=== PATIENT | male | born 1970 | race Caucasian/White ===

== ENCOUNTER 2016-04-30 19:24 | Inpatient (IN) | payer OTHER ==
[~2016-04-30] VITALS: Ht 165.1 cm; Wt 62.2 kg
--- NOTE | ~2016-04-30 | HC ---
[facility] [place] [address] CONSULTATION Name: MIRIAM TUBBS JR Room #: 462-P [facility] IN M.R.#: [id number] Admission: 04/30/16 Attend Phys: Keith Muñoz Discharge: 05/03/16 Date of : 66 Report #: [id number] THIS REPORT FOR: //name// CC: CHELSIE physician/PCP Keith Muñoz DATE OF SERVICE: 05/02/2016 PERSONAL PHYSICIAN: None. CHIEF COMPLAINT: Right stump wound. HISTORY OF PRESENT ILLNESS: This is a 46-year-old white male who is homeless who was admitted for alcohol intoxication and unresponsive. The patient on admission was noted to have a lvnpx-hhk-resj amputation on the right with an open wound. The patient states that the njvxe-neu-evxu amputation performed several months ago at [facility], but never did any followup. The patient actually still has the surgical amish in place on the xesnt-yiq-lusx amputation. The patient also has lzfgm-nnj-ybxx amputation on the left, which amish are still in place as well. The patient is a very poor historian and states he is unclear of actually how long the amish have been there. I was asked to see the patient for this wounds on his right stump. The patient also complains of a pruritic rash in his groin. PAST MEDICAL HISTORY: Significant for alcohol abuse, peripheral vascular disease, and COPD. PAST SURGICAL HISTORY: Previous left AKA and the right BKA. CURRENT MEDICATIONS: Unknown, the patient is on IV antibiotics at this time. DRUG ALLERGIES: IBUPROFEN. SOCIAL HISTORY: The patient has a history of smoking, drinks alcohol daily in excess, is homeless. FAMILY HISTORY: Unobtainable. REVIEW OF SYSTEMS: CONSTITUTIONAL: The patient denies fevers or chills. NEUROLOGIC: The patient with generalized weakness. EYES: No complaints. ENT: No complaints. CARDIAC: The patient denies chest pain, palpitations, or peripheral edema. RESPIRATORY: The patient denies shortness of breath, cough, or wheezes. GASTROINTESTINAL: The patient denies nausea, vomiting, or abdominal pain. [facility] [address] [place] [address] CONSULTATION Name: MIRIAM TUBBS Room #: 462-P [facility] IN M.R.#: [id number] Admission: 04/30/16 Attend Phys: Keith Muñoz Discharge: 05/03/16 Date of : 66 Report #: [id number] GENITOURINARY: The patient denies urgency or frequency. MUSCULOSKELETAL: No complaints. SKIN: There is a groin rash as well as a wound on the distal aspect of the right BKA stump. PHYSICAL EXAMINATION: VITAL SIGNS: Stable. The patient is afebrile. GENERAL: This is an alert and oriented x2 person and place, but not time, white male who is in no acute distress. HEENT: Normocephalic, atraumatic. Mucous membranes are dry. Pupils are round. Sclerae are white. NECK: Without JVD. LUNGS: Clear. HEART: Regular. ABDOMEN: Soft, nontender. EXTREMITIES: The patient has a mounk-rfk-zdug amputation on the right with an area of slough and necrosis on the stump itself along the incision line, amish are place. Left AKA has a clean, healed incision, amish still in place. Evaluation of the groin reveals a fungal rash. NEUROLOGIC: Cranial nerves 2-12 are grossly intact. Motor and sensory grossly intact. LABORATORY DATA: White count 9.6, hemoglobin 11.0. Albumin is 2.3. IMPRESSION: 1. Ovkuh-lcu-lcxj amputation on the right with a necrotic stump. 2. Left klsis-srs-jicx amputation with a healed incisional line. 3. Alcohol abuse. 4. Severe protein-calorie malnutrition, albumin 2.3. PROCEDURE NOTE PREPROCEDURE DIAGNOSES: 1. Necrotic stump, right below-the- knee amputation. 2. Peripheral vascular disease. POSTPROCEDURE DIAGNOSES: 1. Necrotic stump, right below-the- knee amputation. 2. Peripheral vascular disease. PROCEDURE: After timeout was taken, verbal consent was obtained. The patient had excisional debridement down to and including subcutaneous tissue with removal of viable and nonviable tissue. A 100% of the wound was debrided for a total of less than 20 square cm totally debrided subcutaneous debridement. Curette was used for the debridement. No anesthesia was used for the debridement. The patient did receive IV morphine during the procedure. [address] [address] CONSULTATION Name: MIRIAM TUBBS Room #: 462-P [facility] IN M.R.#: [id number] Admission: 04/30/16 Attend Phys: Keith Muñoz Discharge: 05/03/16 Date of : 66 Report #: [id number] Bleeding was minimal, easily controlled with pressure. Pre-debridement measurements were 6.0 x 2.0 x 0.2 cm. Post-debridement measurements are 6.1 x 2.4 x 0.4 cm. The patient tolerated the procedure well. Dressing was placed over the wound after the procedure. Once again, total amount of subcutaneous debridement was less than 20 square cm. PLAN: We will use Maxorb AG over the stump site, change this every Thursday, Thursday and Thursday. Cover this with gauze. We will continue to follow the patient. <ELECTRONICALLY SIGNED> By: Nazario Thompson MD 05/08/16 1339 [id number] Nazario Thompson MD /nt
--- NOTE | ~2016-04-30 | HC ---
[facility] [place] [address] CONSULTATION Name: MIRIAM TUBBS JR Room #: 462-P [facility] IN M.R.#: [id number] Admission: 04/30/16 Attend Phys: Keith Muñoz Discharge: 05/03/16 Date of : 66 Report #: [id number] THIS REPORT FOR: //name// CC: CHELSIE physician/PCP Keith Muñoz DATE OF SERVICE: 05/01/2016 REASON FOR CONSULTATION: Right below knee amputation, possible infection. HISTORY OF PRESENT ILLNESS: The patient is a 46-year-old gentleman who was found unresponsive by police last evening. He generally comes in intoxicated and leaves AMA often. He recently has had a right below knee amputation that was done in January per his report. In addition, he has had a left above knee amputation that was done in December per his report. He actually has amish in both of his incision lines from his surgeries. He has had redness and swelling as well as some drainage from his right below knee amputation stump and we have been consulted for evaluation of this. PAST MEDICAL HISTORY: Alcohol abuse, severe peripheral vascular disease, possible COPD. PAST SURGICAL HISTORY: Left above knee amputation, right below knee amputation and previous right transmetatarsal amputation secondary to gangrene. ALLERGIES: IBUPROFEN. HOME MEDICATIONS: Unknown. SOCIAL HISTORY: He does smoke. He also drinks alcohol in excess. He is homeless and lives on the [address]. He gets around with a wheelchair. PHYSICAL EXAMINATION: In general, this is a sickly appearing male in no acute distress. He is oriented and cooperative with exam. Examination of the right lower extremity shows him to have a right below knee amputation. He still has amish in his incision, several of which seemed to be overgrown with skin. The mid portion of his incision looks to be dehisced partially, but there is no obvious exposed bone. There is no purulent drainage. There is mild erythema and tenderness to the stump. The inferior flap of this stump shows some ulceration of the skin, but again no exposed bone or muscle. Examination of the left above-knee amputation shows him to have amish in place. He does have 1 small area of ulceration in the mid portion of the incision that appears to be superficial. There is no erythema or drainage. LABORATORY VALUES: Show him to have a white cell count of 5.7, hemoglobin of 9.3. [address] [address] CONSULTATION Name: MIRIAM TUBBS Room #: 462-P [facility] IN M.R.#: [id number] Admission: 04/30/16 Attend Phys: Keith Muñoz Discharge: 05/03/16 Date of : 66 Report #: [id number] ASSESSMENT: Right below knee amputation, partial wound dehiscence with possible deep infection. PLAN: I am going to get an x-ray of his leg to evaluate this. We will get his amish removed from both of his amputation stumps. I have consulted Dr. Nazario Thompson for his input to see if this can be managed with wound care versus the need for revision amputation and possible above knee amputation. We will follow along with you. Thank you for allowing us to take care of the patient. <ELECTRONICALLY SIGNED> By: Markus Stanton MD 05/09/16 1256 [id number] [id number] Markus Stantno MD /nt
--- NOTE | ~2016-04-30 | H ---
[facility] [place] [address] HISTORY AND PHYSICAL Name: MIRIAM TUBBS JR Room #: 462-P ADM IN M.R.#: [id number] Admission: 04/30/16 Attend Phys: Keith Muñoz Discharge: Date of : 66 Report #: [id number] THIS REPORT FOR: //name// CC: FAM physician/PCP Wong Gilbert DATE OF SERVICE: 04/30/2016 ATTENDING PHYSICIAN: Wong Gilbert MD PRIMARY CARE PHYSICIAN: None. CHIEF COMPLAINT: Unresponsiveness. HISTORY OF PRESENT ILLNESS: The patient is a 46-year-old male, who has been hospitalized at multiple facilities including [facility]. He usually comes in intoxicated and then recovers and leaves AMA. He has had significant vascular problems and has had prior left BKA due to frostbite and infection. He has been noncompliant. He is homeless. Since his last hospitalization here at [facility] in August of 2015, he has had right below knee amputation. It looks like when he was here in August, he was having right foot gangrene, but he was refusing any amputation at that time. He had left AMA in August. Apparently, he was found tonight by police on the side of the road and his wheelchair slumped over. He was unresponsive. He smelled of alcohol. EMS was called. His blood sugar was 155. He did not wake up in the ER, but he was responding to painful stimuli. He has presented similarly in the past. He is currently in the ICU. He remains unresponsive. His heart rate has been tachycardia since arrival. PAST MEDICAL HISTORY: Alcohol abuse, severe PVD, possible COPD. PAST SURGICAL HISTORY: Left BKA and at some point, he must have had left AKA and then most recently right BKA. He has also had a prior right transmetatarsal amputation due to gangrene. ALLERGIES: IBUPROFEN, unknown reaction. HOME MEDICATIONS: I really have no idea what medications he has been taking or how compliant he is and he is unable to provide any details. FAMILY HISTORY: Unobtainable due to altered mental status. SOCIAL HISTORY: Previous records show that the patient smokes. He drinks alcohol in excess and he does have substance abuse with prior drug screen. Prior drug screens positive for marijuana. Looking back at his prior alcohol levels dating back to 2012, they have never been less than 293 with alcohol [facility] [address] [place] [place] [address] HISTORY AND PHYSICAL Name: MIRIAM TUBBS Room #: 462-P [facility] IN M.R.#: [id number] Admission: 04/30/16 Attend Phys: eKith Muñoz Discharge: Date of : 66 Report #: [id number] levels up to 529. REVIEW OF SYSTEMS: Unobtainable due to altered mental status. PHYSICAL EXAMINATION: GENERAL: The patient is an obtunded male, currently in the ICU. VITAL SIGNS: Temperature is 35.6, heart rate 135, respirations 20, blood pressure 129/89, oxygen was 85% on room air. HEENT: PERRLA. Sclerae is nonicteric, but slightly reddened, he will not track with his eyes. Oral mucosa is pink and dry. NECK: Supple, no JVD noted. CARDIOVASCULAR: Heart rate is tachycardic, but no murmurs, rubs or gallops. RESPIRATORY: Breath sounds are clear throughout. He does have ____ breath sounds when his mouth is open. ABDOMEN: Nondistended, but soft with positive bowel sounds. VASCULAR: He does have a left AKA. On the right, he has prior BKA. His stump on the right does look ischemic. It is very dusky in color and there are some multiple open ulcers, he still has amish in place. We have no idea when this surgery took place. There is a small open area within the amish. NEUROLOGIC: The patient is obtunded. He will not arouse to stimuli at this time. He will not answer questions or follow commands. LABORATORY DATA AND DIAGNOSTICS: WBC is 9.6, hemoglobin 11.0, platelets 232. Sodium 148, potassium 3.5, BUN 11, creatinine 0.5. Glucose is 125. AST is 38. ALT 29, alkaline phosphatase 142. Alcohol level is 513, CPK level is 410. Magnesium 1.6. CT of the head, no acute process and EKG showed sinus tachycardia. ASSESSMENT AND PLAN: 1. Alcohol intoxication. We will place on alcohol withdrawal protocol with seizure precautions and start banana bag. Use Ativan p.r.n. for any withdrawal symptoms. Please note once he belle up, he usually leaves AMA. 2. Altered mental status. We will check an ABG since he is so obtunded and make sure he does not have any CO2 retention. We will also check a lactate level on the blood gas if he may require BiPAP. It looks like he has required BiPAP in the past when he presented similarly. 3. Right stump infection. His wound does look ischemic. He does have prior history of nonhealing wounds from gangrene and frostbite. It looks like he just left [facility]. He actually had [facility] armbands still on and his incision on the stump looks recent with amish still intact. We will check a CRP level and blood cultures and start vancomycin as it is difficult to tell if there is underlying infection. We will have wound care evaluate and try to get the records from [facility]. 4. Tachycardia. This may be due to dehydration versus infection. We will continue with aggressive IV fluids. We will follow blood cultures. 5. ____ this is being replaced. Follow labs. [facility] [place] [address] HISTORY AND PHYSICAL Name: ARLEYMIRIAM CARLOS Room #: 462-P ADM IN M.R.#: [id number] Admission: 04/30/16 Attend Phys: Keith Muñoz Discharge: Date of : 66 Report #: [id number] 6. Deep vein thrombosis prophylaxis: Start Lovenox. 7. Acute hypercapnic respiratory failure. His ABGs just came back showing a pH of 7.22, pCO2 of 83, pO2 of 100, bicarbonate 33.4 with a normal lactate of 1.37. We will currently place him on BiPAP and repeat ABGs later in the morning. We will continue to follow the patient closely throughout the hospitalization and make changes based on clinical status. <ELECTRONICALLY SIGNED> By: KAJAL Pcikett 05/02/16 0646 0325 0754 KAJAL Pickett /nt
--- NOTE | ~2016-04-30 | EKG ---
[address] [place] [address] ELECTROCARDIOGRAM REPORT Name: MIRIAM TUBBS Room #: 247-P ADM IN M.R.#: [id number] Admission: 04/30/16 Attend Phys: Wong Gilbert MD Discharge: Date of : 66 Report #: [id number] THIS REPORT FOR: //name// [facility] ED Test Date: 2016-04-30 Test Time: 21:24:06 Pat Name: MIRIAM TUBBS Department: Room: 247 Gender: M Senior Professional Services Consultant: MZOOK : 1970 Requested By: Kj Barbosa Order Number: [id number] MD: Seferino Howell Measurements Intervals [place] Rate: 131 P: 80 HI: 136 QRS: 95 QRSD: 90 T: 27 QT: 315 QTc: 465 Interpretive Statements Sinus tachycardia Borderline right axis deviation Compared to ECG 09/02/2015 15:57:19 No significant change was found Electronically Signed On 05-01-2016 8:34:16 COTTON BUYER by Seferino Howell [email or web address] <ELECTRONICALLY SIGNED> By: Seferino Howell MD, [facility] 05/01/16 0834 23 23 Seferino Howell MD, [facility] /EPI
[~2016-04-30 19:24] MED LIST: ATIVAN1 MG PO; DILANTIN100 MG PO; DILANTIN30 MG; HYDROCODON-ACE1 EAC7 PO; HYDROCODONE-AP1 EAC6; PAXIL10 MG; SEROQUEL 50 MG50 MG PO; TRINATE TABLET1 TAB PO; VITAMIN B-1100 M1 PO
[2016-04-30 19:26] VITALS: BP 129/89
[2016-04-30 20:46] LABS: ABSOLUTE NEUTROPHILS 7.4 thou/uL (1.4-8.2); BASOPHILS 0.7 % (0.0-2.0); EOSINOPHILS 1.8 % (0.0-3.0); HEMATOCRIT 34.3 % (42.0-52.0); LYMPHOCYTES 11.1 % (24.0-44.0); MCH 26.5 pg (26.0-34.0); MCHC 32.1 % (28.0-37.0); MCV 82.5 fL (80.0-100.0); MONOCYTES 9.3 % (1.0-8.0); PLATELET COUNT 232 thou/uL (150-400); POLYS 77.1 % (36.0-66.0); RBC 4.15 mil/uL (4.50-6.00); WBC 9.6 thou/uL (4.0-11.0)
[2016-04-30 20:49] LABS: MANUAL DIFF NO
[2016-04-30 21:02] LABS: CALCIUM 8.5 mg/dL (8.5-10.1); CREATININE 0.5 mg/dL (0.6-1.3); POTASSIUM 3.5 mmol/L (3.5-5.1)
[2016-04-30 21:08] LABS: ALBUMIN 2.6 g/dL (3.4-5.0); TOTAL BILIRUBIN 0.1 mg/dL (<0.1-1.0); TOTAL PROTEIN 7.2 g/dL (6.4-8.2)
[2016-04-30 22:32] VITALS: BP 113/75
[2016-04-30 23:00] VITALS: BP 102/74
[2016-04-30 23:15] VITALS: BP 109/69
[2016-04-30 23:30] VITALS: BP 110/68
[2016-04-30 23:45] VITALS: BP 121/85
[2016-05-01] VITALS (50 sets, daily range): BP systolic 48–154; BP diastolic 12–127
[2016-05-01 01:31] LABS: ABG SAMPLE TYPE ARTERIAL; BE(vivo) 3.7 mmol/L (-2 to +3); HCO3 33.4 mmol/L (22.0-26.0); LACTATE 1.37 mmol/L (0.5-2.0); O2(CT) 14.5 mL/dL (15.0-23.0); PO2 100.6 mmHg (80.0-100.0); tCO2 35.9 mmol/L (24.0-30.0)
[2016-05-01 01:32] LABS: PCO2 83.2 mmHg (35.0-45.0); STICK SITE R.RADIAL; pH 7.221 (7.360-7.450)
[2016-05-01 04:28] LABS: HEMATOCRIT 28.7 % (42.0-52.0); HEMOGLOBIN 9.3 gm/dL (14.0-18.0); MCH 26.7 pg (26.0-34.0); MCHC 32.3 % (28.0-37.0); MCV 82.7 fL (80.0-100.0); RBC 3.47 mil/uL (4.50-6.00); RDW 19.7 % (10.5-14.5); WBC 5.7 thou/uL (4.0-11.0)
[2016-05-01 04:47] LABS: CALCIUM 7.9 mg/dL (8.5-10.1); CREATININE 0.5 mg/dL (0.6-1.3); MAGNESIUM 1.8 mg/dL (1.8-2.4); POTASSIUM 3.8 mmol/L (3.5-5.1)
[2016-05-01 05:08] LABS: ABG SAMPLE TYPE ARTERIAL; BE(vivo) 3.5 mmol/L (-2 to +3); HCO3 29.4 mmol/L (22.0-26.0); LACTATE 1.73 mmol/L (0.5-2.0); O2(CT) 13.6 mL/dL (15.0-23.0); O2Hb 95.7 % (92.0-98.0); PCO2 51.4 mmHg (35.0-45.0); PO2 109.1 mmHg (80.0-100.0); STICK SITE R.RADIAL; pH 7.375 (7.360-7.450); sO2 97.8 % (92.0-98.0)
[2016-05-01 05:09] LABS: Pressure Support 8 cm H20
[2016-05-01 05:18] LABS: AMP/METHAMP Negative (Negative); BARBITURATES Negative (Negative); BENZODIAZEPINES POSITIVE (Negative); COCAINE Negative (Negative); METHADONE Negative (Negative); OPIATES Negative (Negative); PCP Negative (Negative); THC Negative (Negative)
[2016-05-01] MEDS ORDERED: DILANTIN100 MG PO (05:27)
[2016-05-02 05:20] VITALS: BP 148/85
[2016-05-02 06:33] LABS: HEMATOCRIT 26.1 % (42.0-52.0); HEMOGLOBIN 8.3 gm/dL (14.0-18.0); MCH 26.6 pg (26.0-34.0); MCHC 31.8 % (28.0-37.0); MCV 83.7 fL (80.0-100.0); RBC 3.12 mil/uL (4.50-6.00); RDW 19.2 % (10.5-14.5); WBC 6.1 thou/uL (4.0-11.0)
[2016-05-02 06:39] LABS: MANUAL DIFF YES
[2016-05-02 06:44] LABS: ALBUMIN 2.3 g/dL (3.4-5.0); CALCIUM 8.8 mg/dL (8.5-10.1); CREATININE 0.5 mg/dL (0.6-1.3); MAGNESIUM 1.4 mg/dL (1.8-2.4); PHOSPHORUS 4.1 mg/dL (2.5-4.9); POTASSIUM 3.4 mmol/L (3.5-5.1)
[2016-05-02 07:37] VITALS: BP 158/85
[2016-05-02 07:45] LABS: ABSOLUTE NEUTROPHILS 3.7 thou/uL (1.4-8.2); TOTAL CELL COUNT 100
[2016-05-02 07:46] LABS: PLATELET COUNT 134 thou/uL (150-400)
[2016-05-02 07:49] LABS: PLATELET ESTIMATE DECREASED
[2016-05-02 07:50] LABS: ANISOCYTOSIS 2+
[2016-05-02 07:54] LABS: HYPOCHROMASIA 1+; MICROCYTES 1+; OVALOCYTES OCCASIONAL; POIKILOCYTOSIS 1+; TARGET CELLS FEW
[2016-05-02 11:26] VITALS: BP 144/84
[2016-05-02 16:30] VITALS: BP 145/84
[2016-05-02 21:31] VITALS: BP 152/57
[2016-05-03 04:24] VITALS: BP 149/88
[2016-05-03 06:14] LABS: HEMATOCRIT 29.1 % (42.0-52.0); HEMOGLOBIN 9.4 gm/dL (14.0-18.0); MCH 26.1 pg (26.0-34.0); MCHC 32.2 % (28.0-37.0); MCV 81.2 fL (80.0-100.0); PLATELET COUNT 159 thou/uL (150-400); RBC 3.58 mil/uL (4.50-6.00); RDW 19.7 % (10.5-14.5); WBC 4.6 thou/uL (4.0-11.0)
[2016-05-03 06:18] LABS: MANUAL DIFF YES
[2016-05-03 07:45] VITALS: BP 150/97
[2016-05-03 10:06] LABS: ABSOLUTE NEUTROPHILS 2.7 thou/uL (1.4-8.2); ANISOCYTOSIS 2+; ATYPICAL LYMPHS 1 %; TOTAL CELL COUNT 100
[2016-05-03] MEDS ORDERED: CLEOCIN HCL150 MG PO (12:27)
[2016-05-03] MEDS ORDERED: DILANTIN100 MG PO (12:28)
[2016-05-03] MEDS ORDERED: OXYCODONE HCL10 MG PO (12:28)
[2016-05-03 13:21] VITALS: BP 128/82
[2016-05-03 13:36] VITALS: BP 128/82
[2016-05-05 12:45] VITALS: BP 128/82
== END 2016-05-03 17:00 | disposition home or self-care (01) | DRG 463 ==
LOC: ER 19:24 → ICU 21:31 → EROBS 21:31 → 4W 21:31 → ICU 22:21 → 4W 05-01 12:17
PROVIDERS: Emergency Medicine; Hospitalist; Nurse Practitioner Acute Care
PROC: 5A09357 Assistance with Respiratory Ventilation, Less than 24 Consecutive Hours, Continuous Positive Airway Pressure (ICD-10-PCS; 2016-05-01)
PROC: 0JBN0ZZ Excision of Right Lower Leg Subcutaneous Tissue and Fascia, Open Approach (ICD-10-PCS; principal; 2016-05-02)
DX: T87.43 Infection of amputation stump, right lower extremity (principal); J96.02 Acute respiratory failure with hypercapnia; E43 Unspecified severe protein-calorie malnutrition; G40.802 Other epilepsy, not intractable, without status epilepticus; T87.81 Dehiscence of amputation stump; J44.9 Chronic obstructive pulmonary disease, unspecified; F17.210 Nicotine dependence, cigarettes, uncomplicated; I73.9 Peripheral vascular disease, unspecified; F10.129 Alcohol abuse with intoxication, unspecified; Y90.9 Presence of alcohol in blood, level not specified; Z88.6 Allergy status to analgesic agent; Z89.511 Acquired absence of right leg below knee; Z91.14 Patient's other noncompliance with medication regimen; Z59.0 Homelessness; Z89.512 Acquired absence of left leg below knee; Z68.22 Body mass index [BMI] 22.0-22.9, adult; Z23 Encounter for immunization; Z98.890 Other specified postprocedural states
CPT/HCPCS: 10045; 10078

== ENCOUNTER 2016-05-05 19:38 | Inpatient (IN) | payer OTHER ==
[~2016-05-05] VITALS: Ht 152.4 cm; Wt 62.6 kg
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
--- NOTE | ~2016-05-05 | EKG ---
[address] [place] [address] ELECTROCARDIOGRAM REPORT Name: MIRIAM TUBBS Room #: 433-I ADM IN M.R.#: [id number] Admission: 05/05/16 Attend Phys: Marin Rosenbaum MD Discharge: Date of : 66 Report #: [id number] THIS REPORT FOR: //name// [facility] ED Test Date: 2016-05-05 Test Time: 20:16:55 Pat Name: MIRIAM TUBBS Department: Room: [facility] Gender: M Roofing Foreman: MAGAN : 1970 Requested By: Colleen Arboleda Order Number: [id number] MD: Demetrius Hyde Measurements Intervals [place] Rate: 110 P: 77 ME: 171 QRS: 86 QRSD: 98 T: 60 QT: 340 QTc: 461 Interpretive Statements Sinus tachycardia Probable left atrial enlargement Borderline T wave abnormalities ST elev, probable normal early repol pattern Compared to ECG 04/30/2016 21:24:06 T-wave abnormality now present ST (T wave) deviation now present Electronically Signed On 05-06-2016 8:21:52 MINES INSPECTOR by Demetrius Hyde [email or web address] <ELECTRONICALLY SIGNED> By: Demetrius Hyde MD 05/06/16 0821 15 15 Demetrius Hyde MD /EPI
[~2016-05-05 19:38] MED LIST changes: +CLEOCIN HCL150 MG PO; +OXYCODONE HCL10 MG PO
[2016-05-05 19:41] VITALS: BP 120/85
[2016-05-05 20:11] LABS: HEMATOCRIT 33.3 % (42.0-52.0); HEMOGLOBIN 10.6 gm/dL (14.0-18.0); MCHC 31.9 % (28.0-37.0); MCV 81.2 fL (80.0-100.0); PLATELET COUNT 252 thou/uL (150-400); RBC 4.09 mil/uL (4.50-6.00); RDW 20.7 % (10.5-14.5); WBC 6.2 thou/uL (4.0-11.0)
[2016-05-05 20:12] LABS: MANUAL DIFF YES
[2016-05-05 20:21] LABS: CALCIUM 9.4 mg/dL (8.5-10.1); CREATININE 0.5 mg/dL (0.6-1.3); POTASSIUM 3.1 mmol/L (3.5-5.1)
[2016-05-05 20:27] LABS: TOTAL BILIRUBIN 0.2 mg/dL (<0.1-1.0)
[2016-05-05 20:31] LABS: URINE BILIRUBIN NEGATIVE (Negative); URINE BLOOD NEGATIVE (Negative); URINE COLOR YELLOW; URINE GLUCOSE-RANDOM* NEGATIVE (Negative); URINE KETONES NEGATIVE (Negative); URINE NITRITE POSITIVE (Negative); URINE PROTEIN (DIPSTICK) TRACE (Negative); URINE SPECIFIC GRAVITY >= 1.030 (1.003-1.035); URINE UROBILINOGEN 0.2 E.U./dl (0.2-1.0)
[2016-05-05 20:37] LABS: ANISOCYTOSIS 2+; POLYCHROMASIA OCCASIONAL; TOTAL CELL COUNT 100
[2016-05-05 20:38] LABS: HYPOCHROMASIA SLIGHT
[2016-05-05 20:46] LABS: AMP/METHAMP Negative (Negative); BARBITURATES Negative (Negative); BENZODIAZEPINES POSITIVE (Negative); COCAINE Negative (Negative); METHADONE Negative (Negative); OPIATES Negative (Negative); PCP Negative (Negative); THC Negative (Negative)
[2016-05-05 20:48] LABS: BACTERIA >30 Many /HPF (None Seen); CASTS None Seen /LPF (None Seen); CRYSTALS None Seen /LPF (None Seen); SQUAMOUS None Seen /LPF (0-3); URINE RBC None Seen /HPF (0-2); URINE WBC >25 Many /HPF (0-5)
[2016-05-06] VITALS (7 sets, daily range): BP systolic 102–165; BP diastolic 56–91
[2016-05-06 06:21] LABS: HEMATOCRIT 29.1 % (42.0-52.0); HEMOGLOBIN 9.2 gm/dL (14.0-18.0); MCH 26.4 pg (26.0-34.0); MCHC 31.5 % (28.0-37.0); MCV 83.8 fL (80.0-100.0); RBC 3.48 mil/uL (4.50-6.00); RDW 20.5 % (10.5-14.5); WBC 8.2 thou/uL (4.0-11.0)
[2016-05-06 06:36] LABS: CALCIUM 8.5 mg/dL (8.5-10.1); CREATININE 0.5 mg/dL (0.6-1.3); POTASSIUM 3.7 mmol/L (3.5-5.1)
[2016-05-07 05:10] VITALS: BP 165/87
[2016-05-07 08:09] VITALS: BP 142/93
[2016-05-07] MEDS ORDERED: OXYCODONE HCL10 MG PO (10:20)
[2016-05-07] MEDS ORDERED: DILANTIN100 MG PO (10:20)
[2016-05-07] MEDS ORDERED: CLEOCIN HCL150 MG PO (10:20)
[2016-05-07 10:56] VITALS: BP 142/93
== END 2016-05-07 14:00 | disposition home or self-care (01) | DRG 896 ==
LOC: ER 19:38 → 4S 23:09 → EROBS 23:09 → 4S 05-06 00:19
PROVIDERS: Emergency Medicine; Nurse Practitioner Family
DX: F10.229 Alcohol dependence with intoxication, unspecified (principal); G92 Toxic encephalopathy; F33.9 Major depressive disorder, recurrent, unspecified; L03.115 Cellulitis of right lower limb; T87.43 Infection of amputation stump, right lower extremity; I10 Essential (primary) hypertension; F17.210 Nicotine dependence, cigarettes, uncomplicated; E87.6 Hypokalemia; Y90.8 Blood alcohol level of 240 mg/100 ml or more; I73.89 Other specified peripheral vascular diseases; Z89.612 Acquired absence of left leg above knee; Z89.511 Acquired absence of right leg below knee; Z88.6 Allergy status to analgesic agent; Z91.14 Patient's other noncompliance with medication regimen; Z59.0 Homelessness
CPT/HCPCS: 10100

== ENCOUNTER 2016-09-11 23:43 | Emergency (ER) | payer OTHER ==
[~2016-09-11] VITALS: Ht 152.4 cm; Wt 74.8 kg
[2016-09-12 00:18] LABS: ABG SAMPLE TYPE ARTERIAL; BE(vivo) 6.3 mmol/L (-2 to +3); HCO3 32.8 mmol/L (22.0-26.0); LACTATE 1.94 mmol/L (0.5-2.0); O2Hb 93.8 % (92.0-98.0); PCO2 58.7 mmHg (35.0-45.0); PO2 126.3 mmHg (80.0-100.0); STICK SITE R.BRACHIAL; pH 7.365 (7.360-7.450); sO2 98.3 % (92.0-98.0); tCO2 34.6 mmol/L (24.0-30.0)
[2016-09-12 00:26] LABS: HEMOGLOBIN 8.8 gm/dL (14.0-18.0)
[2016-09-12 00:28] LABS: HEMATOCRIT 28.3 % (42.0-52.0); MCH 22.6 pg (26.0-34.0); MCV 72.8 fL (80.0-100.0); PLATELET COUNT 553 thou/uL (150-400); RBC 3.88 mil/uL (4.50-6.00); RDW 22.3 % (10.5-14.5)
[2016-09-12 00:29] LABS: CALCIUM 8.5 mg/dL (8.5-10.1); CREATININE 0.7 mg/dL (0.7-1.3); MANUAL DIFF YES
[2016-09-12 00:32] LABS: POTASSIUM 2.9 mmol/L (3.5-5.1)
[2016-09-12 00:49] LABS: ABSOLUTE NEUTROPHILS 3.2 thou/uL (1.4-8.2); HYPOCHROMASIA 2+; TOTAL CELL COUNT 100
[2016-09-12 00:50] LABS: ANISOCYTOSIS 3+
[2016-09-12 00:51] LABS: MACROCYTES 1+; MICROCYTES 2+
== END 2016-09-12 06:47 | disposition home or self-care (01) ==
LOC: ER 23:43
PROVIDERS: Emergency Medicine
DX: F10.129 Alcohol abuse with intoxication, unspecified (principal); F32.9 Major depressive disorder, single episode, unspecified; I10 Essential (primary) hypertension; F17.210 Nicotine dependence, cigarettes, uncomplicated; Y90.8 Blood alcohol level of 240 mg/100 ml or more

== ENCOUNTER 2016-09-13 14:29 | Inpatient (IN) | payer OTHER ==
[~2016-09-13] VITALS: Ht 121.9 cm; Wt 60.7 kg
[2016-09-13] VITALS (20 sets, daily range): BP systolic 86–122; BP diastolic 62–90
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
--- NOTE | ~2016-09-13 | HC ---
[facility] [place] [address] CONSULTATION Name: MIRIAM TUBBS JR Room #: 241-P ADM IN M.R.#: [id number] Admission: 09/13/16 Attend Phys: Jeff Landrum MD Discharge: Date of : 66 Report #: [id number] THIS REPORT FOR: //name// CC: CHELSIE physician/PCP Jeff Landrum DATE OF SERVICE: 09/13/2016 REFERRING PROVIDER: Dr. Jeff Landrum. REASON FOR CONSULTATION: Respiratory failure. CHIEF COMPLAINT: Encephalopathy. HISTORY OF PRESENT ILLNESS: Our group was asked to see the patient in consultation while hospitalized at [facility], 46-year-old male, frequent admissions to this institution due to alcohol related problems and was found poorly responsive and brought in by EMS. Patient appeared to be significantly inebriated and unable to protect his airway and subsequently intubated for airway protection, currently sedated on propofol in ICU, unable to give any further history. Recent history includes dental abscesses as well as history of bilateral kcxtg-ifw-weyx amputations, any further history unobtainable from the patient and acquired from the medical records. ALLERGIES: IBUPROFEN. PAST MEDICAL HISTORY: 1. History of bilateral sldvn-tye-wjzi amputations. 2. Alcohol abuse disorder. 3. Probable alcohol-induced seizures. OUTPATIENT MEDICATIONS: Unclear. PAST SURGICAL HISTORY: Includes prior amputations. SOCIAL HISTORY: The patient is an active smoker, may have some marijuana use with significant alcohol consumption. FAMILY HISTORY: Unobtainable. REVIEW OF SYSTEMS: Unobtainable. PHYSICAL EXAMINATION: VITAL SIGNS: Afebrile, pulse 80s, respiratory rate 12, blood pressure 110/78. GENERAL: This is a middle-aged male, unresponsive, on vent. ENT: Pupils equal, round and reactive to light. Endotracheal tube in place, [facility] [address] [place] [address] CONSULTATION Name: MIRIAM TUBBS Room #: 241-P [facility] IN ..#: [id number] Admission: 09/13/16 Attend Phys: Jeff Landrum MD Discharge: Date of : 66 Report #: [id number] obvious smell of anaerobes from mouth. NECK: Supple, no lymphadenopathy. LUNGS: Clear. No wheezes or crackles. CARDIOVASCULAR: Heart regular. No murmurs noted. ABDOMEN: Soft, no masses. EXTREMITIES: Revealed bilateral cgzaf-fme-iyje amputation. INTEGUMENT: Revealed multiple tattoos with some hyperpigmentation suggestive of chronic sunlight exposure. LABORATORY DATA: Arterial blood gas done on mechanical ventilatory support, assist control tidal volume 600, PEEP of 5, FiO2 60%, rate at 12, revealed pH 7.38, pCO2 is 62, pO2 108, bicarbonate 36. CBC: White blood cell count 7000, hemoglobin 9, hematocrit 30, platelet count 590, urinalysis clear. Chemistry profile, very mild hypernatremia, sodium 146, potassium 3.1, chloride 104, bicarbonate 38, BUN 3, creatinine 0.6, glucose 124. Troponin negative. Alcohol level was 348. IMPRESSION: 1. Respiratory failure, acute hypoxemic secondary to altered mental status likely nothing for infiltrates on x-ray. 2. Acute on chronic hypercapnic respiratory failure. 3. Probable chronic obstructive pulmonary disease. 4. Dental abscesses. 5. Encephalopathy, likely related to alcohol abuse, acute alcohol intoxication. 6. Chronic alcohol abuse. 7. Anemia. 8. Probable underlying psychiatric disorder. SUGGESTIONS: 1. Continue with ICU care and sedation overnight. 2. Wean mechanical ventilatory support when patient more alert. 3. Consider adding Seroquel to current therapy. 4. Consider adding antimicrobial therapy for dental abscesses and caries. 5. Case management to assist after extubation. 6. Alcohol withdrawal protocol. 7. Follow up chest x-ray and arterial blood gas in a.m. 8. Further recommendations to follow. Discussed with nursing. Total critical care time was 35 minutes, not including any procedures. <ELECTRONICALLY SIGNED> By: Abdirizak Johnson MD 09/15/16 1454 2019 0105 Abdirizak Johnson MD /nt
[2016-09-13 15:05] LABS: HEMATOCRIT 29.9 % (42.0-52.0); MCH 21.9 pg (26.0-34.0); MCHC 30.2 g/dL (28.0-37.0); MCV 72.7 fL (80.0-100.0); RBC 4.11 mil/uL (4.50-6.00); WBC 6.8 thou/uL (4.0-11.0)
[2016-09-13 15:06] LABS: URINE BILIRUBIN NEGATIVE (Negative); URINE BLOOD NEGATIVE (Negative); URINE COLOR YELLOW; URINE GLUCOSE-RANDOM* NEGATIVE (Negative); URINE KETONES NEGATIVE (Negative); URINE LEUKOCYTES-REFLEX NEGATIVE (Negative); URINE PROTEIN (DIPSTICK) NEGATIVE (Negative); URINE SPECIFIC GRAVITY <= 1.005 (1.003-1.035); URINE UROBILINOGEN 0.2 E.U./dl (0.2-1.0)
[2016-09-13 15:11] LABS: ABG SAMPLE TYPE ARTERIAL; BE(vivo) 4.7 mmol/L (-2 to +3); HCO3 31.8 mmol/L (22.0-26.0); LACTATE 1.72 mmol/L (0.5-2.0); O2(CT) 10.2 mL/dL (15.0-23.0); PCO2 61.3 mmHg (35.0-45.0); pH 7.333 (7.360-7.450); tCO2 33.7 mmol/L (24.0-30.0)
[2016-09-13 15:12] LABS: O2Hb 71.8 % (92.0-98.0); PO2 49.1 mmHg (80.0-100.0); STICK SITE R.RADIAL
[2016-09-13 15:14] LABS: AMP/METHAMP Negative (Negative); BARBITURATES Negative (Negative); BENZODIAZEPINES POSITIVE (Negative); COCAINE Negative (Negative); METHADONE Negative (Negative); OPIATES Negative (Negative); PCP Negative (Negative); THC Negative (Negative)
[2016-09-13 15:15] LABS: ANION GAP 4 mmol/L (7-16); BUN 3 mg/dL (7-18); CALCIUM 8.4 mg/dL (8.5-10.1); CHLORIDE 104 mmol/L (98-107); CO2 38 mmol/L (21-32); CREATININE 0.6 mg/dL (0.7-1.3); GLUCOSE 124 mg/dL (74-106); POTASSIUM 3.1 mmol/L (3.5-5.1); SODIUM 146 mmol/L (136-145)
[2016-09-13 15:23] LABS: SALICYLATE < 2.8 mg/dL (2.8-20.0); TROPONIN-I < 0.04 ng/mL (<0.04-0.07)
[2016-09-13 17:38] LABS: ABG SAMPLE TYPE ARTERIAL; BE(vivo) 9.3 mmol/L (-2 to +3); LACTATE 1.92 mmol/L (0.5-2.0); O2(CT) 14.3 mL/dL (15.0-23.0); O2Hb 97.7 % (92.0-98.0); PCO2 61.7 mmHg (35.0-45.0); PO2 181.7 mmHg (80.0-100.0); STICK SITE R.RADIAL; TIDAL VOLUME 600 ml; VDS CMV MODE cc; pH 7.384 (7.360-7.450); sO2 99.2 % (92.0-98.0); tCO2 37.9 mmol/L (24.0-30.0)
[2016-09-13 20:21] LABS: MAGNESIUM 1.5 mg/dL (1.8-2.4)
[2016-09-13 20:52] LABS: FOLIC ACID 17.7 ng/mL (8.6-58.9)
[2016-09-14] VITALS (42 sets, daily range): BP systolic 101–165; BP diastolic 66–108
[2016-09-14 04:46] LABS: HEMATOCRIT 25.6 % (42.0-52.0); HEMOGLOBIN 8.2 gm/dL (14.0-18.0); MCH 22.7 pg (26.0-34.0); MCV 70.9 fL (80.0-100.0); RBC 3.61 mil/uL (4.50-6.00); RDW 22.3 % (10.5-14.5); WBC 8.4 thou/uL (4.0-11.0)
[2016-09-14 05:04] LABS: CALCIUM 8.3 mg/dL (8.5-10.1); CREATININE 0.5 mg/dL (0.7-1.3); POTASSIUM 3.3 mmol/L (3.5-5.1)
[2016-09-14 05:38] LABS: ABG SAMPLE TYPE ARTERIAL; BE(vivo) 10.6 mmol/L (-2 to +3); HCO3 35.7 mmol/L (22.0-26.0); LACTATE 1.66 mmol/L (0.5-2.0); O2(CT) 12.5 mL/dL (15.0-23.0); O2Hb 95.4 % (92.0-98.0); PCO2 51.5 mmHg (35.0-45.0); PO2 88.1 mmHg (80.0-100.0); pH 7.459 (7.360-7.450); tCO2 37.3 mmol/L (24.0-30.0)
[2016-09-14 05:39] LABS: STICK SITE R.RADIAL; TIDAL VOLUME 600 ml
[2016-09-14 09:10] LABS: FREE T4 1.03 ng/dL (0.82-1.77)
[2016-09-14 10:40] LABS: MAGNESIUM 2.5 mg/dL (1.8-2.4); POTASSIUM 3.9 mmol/L (3.5-5.1)
[2016-09-15] VITALS (22 sets, daily range): BP systolic 105–168; BP diastolic 65–102
[2016-09-15 04:26] LABS: CALCIUM 8.1 mg/dL (8.5-10.1); CREATININE 0.5 mg/dL (0.7-1.3); MAGNESIUM 1.7 mg/dL (1.8-2.4); PHOSPHORUS 4.3 mg/dL (2.5-4.9)
[2016-09-16 05:49] LABS: CALCIUM 8.9 mg/dL (8.5-10.1); CREATININE 0.5 mg/dL (0.7-1.3); MAGNESIUM 1.6 mg/dL (1.8-2.4); POTASSIUM 4.4 mmol/L (3.5-5.1)
[2016-09-16 08:45] VITALS: BP 137/83
[2016-09-16 09:00] VITALS: BP 139/92
[2016-09-16 12:50] VITALS: BP 136/87
[2016-09-16 20:43] VITALS: BP 125/67
[2016-09-16 20:45] VITALS: BP 125/67
[2016-09-17 03:30] VITALS: BP 110/77
[2016-09-17 08:00] VITALS: BP 121/73
[2016-09-17 08:12] VITALS: BP 121/73
== END 2016-09-17 09:40 | disposition left against medical advice (07) | DRG 208 ==
LOC: ER 14:29 → ICU 17:21 → EROBS 17:21 → ICU 18:19 → 4S 09-16 11:36
PROVIDERS: Emergency Medicine; Internal Medicine; Internal Medicine Pulmonary Disease
PROC: 0BH17EZ Insertion of Endotracheal Airway into Trachea, Via Natural or Artificial Opening (ICD-10-PCS; principal; 2016-09-13)
PROC: 5A1935Z Respiratory Ventilation, Less than 24 Consecutive Hours (ICD-10-PCS; principal; 2016-09-13)
DX: J96.22 Acute and chronic respiratory failure with hypercapnia (principal); G92 Toxic encephalopathy; E87.0 Hyperosmolality and hypernatremia; F10.239 Alcohol dependence with withdrawal, unspecified; F10.229 Alcohol dependence with intoxication, unspecified; J96.01 Acute respiratory failure with hypoxia; E87.6 Hypokalemia; K04.7 Periapical abscess without sinus; B96.4 Proteus (mirabilis) (morganii) as the cause of diseases classified elsewhere; F32.9 Major depressive disorder, single episode, unspecified; I10 Essential (primary) hypertension; D63.8 Anemia in other chronic diseases classified elsewhere; F17.210 Nicotine dependence, cigarettes, uncomplicated; K02.9 Dental caries, unspecified; S46.901A Unspecified injury of unspecified muscle, fascia and tendon at shoulder and upper arm level, right arm, initial encounter; X58.XXXA Exposure to other specified factors, initial encounter; Y90.0 Blood alcohol level of less than 20 mg/100 ml; Z53.21 Procedure and treatment not carried out due to patient leaving prior to being seen by health care provider; Z91.19 Patient's noncompliance with other medical treatment and regimen; Z88.6 Allergy status to analgesic agent; Z89.612 Acquired absence of left leg above knee; Z89.511 Acquired absence of right leg below knee; Z79.899 Other long term (current) drug therapy; Z89.512 Acquired absence of left leg below knee; Y93.89 Activity, other specified; Y92.89 Other specified places as the place of occurrence of the external cause; Y99.8 Other external cause status
CPT/HCPCS: 10078; 10102

== ENCOUNTER 2016-11-29 18:14 | Inpatient (IN) | payer OTHER ==
[~2016-11-29] VITALS: Ht 121.9 cm; Wt 60.3 kg
--- NOTE | ~2016-11-29 | HC ---
[facility] [place] [address] CONSULTATION Name: MIRIAM TUBBS JR Room #: 452-P [facility] IN M.R.#: [id number] Admission: 11/29/16 Attend Phys: Marin Rosenbaum MD Discharge: 12/01/16 Date of : 66 Report #: [id number] THIS REPORT FOR: //name// CC: CHELSIE physician/PCP Marin Rosenbaum DATE OF SERVICE: 11/30/2016 PULMONARY CONSULTATION REFERRING PHYSICIAN: Dr. Rosenbaum. REASON FOR REFERRAL: Respiratory failure. HISTORY OF PRESENT ILLNESS: The patient is a 46-year-old white male who was brought into the Emergency Room after being found unconscious outside a liquor store. The patient was intubated in the ER to protect the airways. A pulmonary consultation was requested. The patient has had numerous admissions in the past for alcohol intoxication. He has also a prior history of respiratory failure. Yesterday, the patient was found outside a liquor store. He was felt to be intoxicated. He was brought to the Emergency Room. In the ER, the patient was found to be somnolent and was subsequently intubated to protect the airways. His alcohol level was 536. Chest x-ray post-intubation shows clear lung field. ET tube approximately 2.5 cm above the mone. PAST MEDICAL HISTORY: Remarkable for multiple admissions due to alcohol intoxication, alcohol abuse, tobacco abuse, history of seizure disorder, depression, hypertension, bilateral AKA, according to the patient due to frostbites. PAST SURGICAL HISTORY: As mentioned above. ALLERGIES: IBUPROFEN, REACTIONS NOT SPECIFIED. HOME MEDICATIONS: List includes Dilantin, oxycodone, clindamycin. FAMILY HISTORY: Unknown. SOCIAL HISTORY: The patient does smoke also does drink alcohol. REVIEW OF SYSTEMS: As mentioned above. He is homeless. Gets his care at times [facility] [address] [place] [address] CONSULTATION Name: ARLEYMIRIAM CARLOS WU Room #: 452-P [facility] IN [facility]#: [id number] Admission: 11/29/16 Attend Phys: Marin Rosenbaum MD Discharge: 12/01/16 Date of : 66 Report #: [id number] at [facility]. Otherwise, complains of pain involving his right leg stump. Otherwise, 10-point system review negative. PHYSICAL EXAMINATION: GENERAL: He is awake, alert, in no apparent distress. VITAL SIGNS: Temperature is 98.7 degrees Fahrenheit, pulse is 116, respiratory rate is 22, blood pressure 110/66 mmHg, saturation 100%. HEENT: Normocephalic, atraumatic. NECK: Supple, without any lymphadenopathy or thyromegaly. CHEST: Breath sounds are clear without rales or wheezes. CARDIOVASCULAR: Normal S1, S2. No murmurs or gallop. There is no JVD. There is no carotid bruit. Pulses are 2+/4+ involving the upper extremities. ABDOMEN: Soft, nontender, no organomegaly or masses felt. GENITOURINARY: Deferred. RECTAL: Deferred. EXTREMITIES: Notable for bilateral AKA. LABORATORY DATA: Chest x-ray on admission was clear. Arterial blood gas on admission revealed pH 7.29, pCO2 of 78, pO2 of 65 on room air. This morning's arterial blood gas revealed pH 7.37, pCO2 of 60, pO2 91 on FiO2 50%. Dilantin level was 1.2. Salicylate level was 2.8. Alcohol level as mentioned above. Acetaminophen level was less than 2. Electrolytes unremarkable except for bicarbonate of 37. Liver function test is mildly elevated. Albumin 2.8, magnesium 1.4, phosphorus 4.5, calcium 7.6. IMPRESSION: 1. Yuyvi-sa-uujvawc hypercapnic hypoxic respiratory failure in this 46-year-old white male. Etiology due to alcohol intoxication along with probable underlying severe chronic obstructive pulmonary disease. 2. Probable chronic obstructive pulmonary disease with chronic hypercapnia. 3. Tobacco abuse. 4. Alcohol abuse. 5. Probable alcoholic liver disease. 6. Hypokalemia, hypernatremia, hypomagnesemia, hypocalcemia. 7. Neutropenia, anemia possibly related to bone marrow suppression related to alcohol abuse. We will need to consider other considerations. 8. Protein calorie malnutrition, mildly severe, albumin 2.8. 9. Seizure disorder, suspect related to alcohol abuse. Note that his Dilantin level was subtherapeutic. RECOMMENDATIONS AND DISCUSSION: The patient was intubated. Arterial blood gas was adequate. Early this morning, the patient underwent a CPAP trial. It was felt to be adequate. The patient was awake, alert, following commands. He was subsequently extubated. He is doing fairly well presently. He is off O2. He is complaining of pain [address] [address] CONSULTATION Name: MIRIAM TUBBS Room #: 452-P [facility] IN M.R.#: [id number] Admission: 11/29/16 Attend Phys: Marin Rosenbaum MD Discharge: 12/01/16 Date of : 66 Report #: [id number] involving his right leg stump. He is answering questions appropriately. Continue current care, again licensed mental health counselor regarding alcohol abuse along with tobacco abuse. He is homeless and would benefit from social service and case management consultation regarding possible placement. A very difficult situation. Pain involving the right leg stump. May need to observe this for possible wound complications. We will defer to the primary team. Thank you for the consultation. <ELECTRONICALLY SIGNED> By: Brigido Ortiz MD 12/02/16 1518 1254 1449 Brigido Ortiz MD /nt
--- NOTE | ~2016-11-29 | EKG ---
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
[2016-11-29 18:15] VITALS: BP 132/89
[2016-11-29 18:27] LABS: ABG SAMPLE TYPE ARTERIAL; BE(vivo) 8.8 mmol/L (-2 to +3); HCO3 37.5 mmol/L (22.0-26.0); LACTATE 1.68 mmol/L (0.5-2.0); O2(CT) 12.1 mL/dL (15.0-23.0); O2Hb 80.1 % (92.0-98.0); PCO2 78.6 mmHg (35.0-45.0); PO2 65.4 mmHg (80.0-100.0); STICK SITE L.RADIAL; pH 7.297 (7.360-7.450); sO2 89.6 % (92.0-98.0)
[2016-11-29 18:34] LABS: HEMATOCRIT 30.5 % (42.0-52.0); HEMOGLOBIN 9.5 gm/dL (14.0-18.0); MCH 21.3 pg (26.0-34.0); MCV 68.6 fL (80.0-100.0); RBC 4.44 mil/uL (4.50-6.00); WBC 3.6 thou/uL (4.0-11.0)
[2016-11-29 18:45] LABS: ANION GAP 5 mmol/L (7-16); BUN 7 mg/dL (7-18); CALCIUM 8.3 mg/dL (8.5-10.1); CHLORIDE 103 mmol/L (98-107); CO2 37 mmol/L (21-32); CREATININE 0.4 mg/dL (0.7-1.3); GLUCOSE 150 mg/dL (74-106); POTASSIUM 3.2 mmol/L (3.5-5.1); SODIUM 145 mmol/L (136-145)
[2016-11-29 18:46] LABS: URINE BILIRUBIN NEGATIVE (Negative); URINE BLOOD NEGATIVE (Negative); URINE COLOR YELLOW; URINE GLUCOSE-RANDOM* NEGATIVE (Negative); URINE KETONES NEGATIVE (Negative); URINE LEUKOCYTES-REFLEX NEGATIVE (Negative); URINE PROTEIN (DIPSTICK) 1+ (Negative); URINE UROBILINOGEN 0.2 E.U./dl (0.2-1.0)
[2016-11-29 18:52] LABS: AMP/METHAMP Negative (Negative); BARBITURATES Negative (Negative); BENZODIAZEPINES POSITIVE (Negative); COCAINE Negative (Negative); METHADONE Negative (Negative); OPIATES Negative (Negative); PCP Negative (Negative); THC Negative (Negative)
[2016-11-29 18:55] LABS: SALICYLATE < 2.8 mg/dL (2.8-20.0); TROPONIN-I < 0.04 ng/mL (<0.04-0.07)
[2016-11-29 19:05] LABS: CASTS None Seen /LPF (None Seen); SQUAMOUS 0-3 Few /LPF (0-3); URINE RBC None Seen /HPF (0-2); URINE WBC-REFLEX 0-5 Rare /HPF (0-5)
[2016-11-29 19:06] LABS: CRYSTALS None Seen /LPF (None Seen)
[2016-11-29 19:29] VITALS: BP 132/89
[2016-11-29 19:38] LABS: ABG SAMPLE TYPE ARTERIAL; HCO3 36.8 mmol/L (22.0-26.0); LACTATE 1.52 mmol/L (0.5-2.0); O2(CT) 13.2 mL/dL (15.0-23.0); O2Hb 93.9 % (92.0-98.0); PCO2 71.8 mmHg (35.0-45.0); PO2 140.8 mmHg (80.0-100.0); STICK SITE L.RADIAL; pH 7.328 (7.360-7.450); sO2 98.5 % (92.0-98.0)
[2016-11-29 19:39] LABS: TIDAL VOLUME 550 ml
[2016-11-29 20:22] LABS: PHOSPHORUS 4.5 mg/dL (2.5-4.9)
[2016-11-29 20:30] VITALS: BP 113/74
[2016-11-29 21:30] VITALS: BP 134/92
[2016-11-29 21:49] LABS: FOLIC ACID > 20.0 ng/mL (8.6-58.9)
[2016-11-30] VITALS: BP 115/82
[2016-11-30 04:00] VITALS: BP 108/64
[2016-11-30 04:51] LABS: HEMATOCRIT 25.4 % (42.0-52.0); MCH 21.6 pg (26.0-34.0); MCHC 31.4 g/dL (28.0-37.0); MCV 68.8 fL (80.0-100.0); RBC 3.7 mil/uL (4.50-6.00); RDW 21.4 % (10.5-14.5); WBC 3.7 thou/uL (4.0-11.0)
[2016-11-30 05:05] LABS: ALBUMIN 2.8 g/dL (3.4-5.0); CALCIUM 7.6 mg/dL (8.5-10.1); CREATININE 0.6 mg/dL (0.7-1.3); TOTAL BILIRUBIN 0.3 mg/dL (<0.1-1.0)
[2016-11-30 05:41] LABS: ABG SAMPLE TYPE ARTERIAL; BE(vivo) 8.9 mmol/L (-2 to +3); LACTATE 1.76 mmol/L (0.5-2.0); O2(CT) 9.1 mL/dL (15.0-23.0); O2Hb 93.4 % (92.0-98.0); PCO2 60.6 mmHg (35.0-45.0); PO2 91.3 mmHg (80.0-100.0); pH 7.379 (7.360-7.450); sO2 96.6 % (92.0-98.0); tCO2 36.8 mmol/L (24.0-30.0)
[2016-11-30 05:42] LABS: STICK SITE L.BRACHIAL; TIDAL VOLUME 550 ml
[2016-11-30 07:44] LABS: ABG COMMENT 1HR CPAP; ABG SAMPLE TYPE ARTERIAL; BE(vivo) 6.6 mmol/L (-2 to +3); HCO3 32.4 mmol/L (22.0-26.0); LACTATE 1.38 mmol/L (0.5-2.0); O2(CT) 11.8 mL/dL (15.0-23.0); O2Hb 96.3 % (92.0-98.0); PCO2 54.4 mmHg (35.0-45.0); PO2 120.9 mmHg (80.0-100.0); Pressure Support 5 cm H20; STICK SITE R.BRACHIAL; pH 7.393 (7.360-7.450); sO2 98.3 % (92.0-98.0); tCO2 34.1 mmol/L (24.0-30.0)
[2016-11-30 08:00] VITALS: BP 106/62
[2016-11-30 11:07] LABS: FREE T4 1.12 ng/dL (0.82-1.77)
[2016-11-30 12:16] VITALS: BP 110/66
[2016-11-30 15:06] VITALS: BP 116/100
[2016-11-30 20:35] VITALS: BP 139/79
[2016-12-01 03:40] VITALS: BP 136/78
[2016-12-01 07:27] VITALS: BP 148/101
[2016-12-01 10:33] LABS: HEMATOCRIT 25.3 % (42.0-52.0); MCH 21.4 pg (26.0-34.0); MCHC 31.5 g/dL (28.0-37.0); RBC 3.73 mil/uL (4.50-6.00); RDW 20.8 % (10.5-14.5); WBC 2.7 thou/uL (4.0-11.0)
[2016-12-01 10:51] LABS: CALCIUM 9.3 mg/dL (8.5-10.1); CREATININE 0.5 mg/dL (0.7-1.3); MAGNESIUM 1.1 mg/dL (1.8-2.4); PHOSPHORUS 3.7 mg/dL (2.5-4.9); POTASSIUM 3.3 mmol/L (3.5-5.1)
[2016-12-01 12:02] VITALS: BP 139/84
== END 2016-12-01 12:14 | disposition left against medical advice (07) | DRG 208 ==
LOC: ER 18:14 → EROBS 19:05 → ICU 21:34 → 4W 11-30 14:59
PROVIDERS: Emergency Medicine; Family Medicine; Nurse Practitioner Family
PROC: 0BH17EZ Insertion of Endotracheal Airway into Trachea, Via Natural or Artificial Opening (ICD-10-PCS; principal; 2016-11-29)
PROC: 5A1935Z Respiratory Ventilation, Less than 24 Consecutive Hours (ICD-10-PCS; principal; 2016-11-29)
DX: J96.22 Acute and chronic respiratory failure with hypercapnia (principal); G93.41 Metabolic encephalopathy; E43 Unspecified severe protein-calorie malnutrition; F10.239 Alcohol dependence with withdrawal, unspecified; Z68.41 Body mass index [BMI] 40.0-44.9, adult; F10.229 Alcohol dependence with intoxication, unspecified; J44.9 Chronic obstructive pulmonary disease, unspecified; J96.21 Acute and chronic respiratory failure with hypoxia; E87.6 Hypokalemia; I10 Essential (primary) hypertension; F17.210 Nicotine dependence, cigarettes, uncomplicated; D64.9 Anemia, unspecified; F32.9 Major depressive disorder, single episode, unspecified; G40.909 Epilepsy, unspecified, not intractable, without status epilepticus; Y90.0 Blood alcohol level of less than 20 mg/100 ml; Z53.21 Procedure and treatment not carried out due to patient leaving prior to being seen by health care provider; Z89.612 Acquired absence of left leg above knee; Z89.611 Acquired absence of right leg above knee; Z88.6 Allergy status to analgesic agent
CPT/HCPCS: 10045; 10078

== ENCOUNTER 2016-12-02 21:22 | Emergency (ER) | payer OTHER ==
[~2016-12-02] VITALS: Ht 134.6 cm; Wt 68.0 kg
--- NOTE | ~2016-12-02 | EKG ---
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 : 1970 Requested By: Orlin Lemon Order Number: [id number] MD: Demetrius Hyde Measurements Intervals [place] Rate: 103 P: 80 [place]: 146 QRS: 92 QRSD: 96 T: 64 QT: 349 QTc: 457 Interpretive Statements Sinus tachycardia Probable left atrial enlargement Borderline right axis deviation Baseline wander in lead(s) V3 Compared to ECG 11/29/2016 18:36:49 No significant changes Electronically Signed On 12-07-2016 21:46:12 CDT by Demetrius Hyde [email or web address] <ELECTRONICALLY SIGNED> By: Demetrius Hyde MD 12/07/16 2146 52 52 Demetrius Hyde MD /RAMIRO
[2016-12-02 22:16] LABS: HEMATOCRIT 27.3 % (42.0-52.0); HEMOGLOBIN 8.5 gm/dL (14.0-18.0); MCH 21.2 pg (26.0-34.0); MCHC 31.2 g/dL (28.0-37.0); MCV 67.9 fL (80.0-100.0); PLATELET COUNT 150 thou/uL (150-400); RBC 4.02 mil/uL (4.50-6.00); RDW 21.4 % (10.5-14.5); WBC 3.7 thou/uL (4.0-11.0)
[2016-12-02 22:17] LABS: MANUAL DIFF YES
[2016-12-02 22:27] LABS: ANION GAP 4 mmol/L (7-16); BUN 4 mg/dL (7-18); CALCIUM 8.9 mg/dL (8.5-10.1); CHLORIDE 102 mmol/L (98-107); CO2 33 mmol/L (21-32); CREATININE 0.5 mg/dL (0.7-1.3); GLUCOSE 147 mg/dL (74-106); POTASSIUM 3.4 mmol/L (3.5-5.1); SODIUM 139 mmol/L (136-145)
[2016-12-02 22:35] LABS: ALBUMIN 3.2 g/dL (3.4-5.0); ALKALINE PHOSPHATASE 111 U/L (46-116); SGOT 90 U/L (15-37); SGPT 90 U/L (30-65); TOTAL BILIRUBIN 0.3 mg/dL (<0.1-1.0); TOTAL PROTEIN 7.9 g/dL (6.4-8.2); TROPONIN-I < 0.04 ng/mL (<0.04-0.07)
[2016-12-02 22:37] LABS: ABSOLUTE NEUTROPHILS 1.4 thou/uL (1.4-8.2); ANISOCYTOSIS 2+; ATYPICAL LYMPHS 1 %; HYPOCHROMASIA 2+; LARGE PLATELETS OCCASIONAL; MICROCYTES 2+; TOTAL CELL COUNT 100
== END 2016-12-03 11:08 | disposition home or self-care (01) ==
LOC: ER 21:22
PROVIDERS: Physician Assistant
DX: F10.129 Alcohol abuse with intoxication, unspecified (principal); J18.9 Pneumonia, unspecified organism; I10 Essential (primary) hypertension; F32.9 Major depressive disorder, single episode, unspecified; F17.210 Nicotine dependence, cigarettes, uncomplicated; F15.10 Other stimulant abuse, uncomplicated; Z88.6 Allergy status to analgesic agent; Y90.8 Blood alcohol level of 240 mg/100 ml or more

== ENCOUNTER 2016-12-08 22:52 | Inpatient (IN) | payer OTHER ==
[~2016-12-08] VITALS: Ht 182.9 cm; Wt 64.5 kg
--- NOTE | ~2016-12-08 | EKG ---
[address] [place] [address] ELECTROCARDIOGRAM REPORT Name: MIRIAM TUBBS Room #: 170-9 ADM IN M.R.#: [id number] Admission: 12/09/16 Attend Phys: Jeff Landrum MD Discharge: Date of : 66 Report #: [id number] THIS REPORT FOR: //name// [facility] ED Test Date: 2016-12-09 Test Time: 07:33:36 Pat Name: MIRIAM TUBBS Department: Room: 170 Gender: M .Net Architect: angus : 1970 Requested By: Damian Collazo Order Number: [id number] MD: Seferino Howell Measurements Intervals [place] Rate: 112 P: 78 [place]: 153 QRS: 82 QRSD: 99 T: 61 QT: 357 QTc: 488 Interpretive Statements Sinus tachycardia Borderline low voltage, extremity leads Borderline prolonged QT interval Compared to ECG 12/02/2016 21:53:41 No significant change was found Electronically Signed On 12-09-2016 10:56:18 CDT by Seferino Howell [email or web address] <ELECTRONICALLY SIGNED> By: Seferino Howell MD, [facility] 12/09/16 1056 0733 Seferino Howell MD, [facility] /EPI
[2016-12-08 23:09] VITALS: BP 123/78
[2016-12-09] VITALS (18 sets, daily range): BP systolic 107–156; BP diastolic 74–110
[2016-12-09 05:41] LABS: HEMOGLOBIN 9.8 gm/dL (14.0-18.0); MCV 69.6 fL (80.0-100.0); PLATELET COUNT 199 thou/uL (150-400)
[2016-12-09 05:42] LABS: HEMATOCRIT 32.6 % (42.0-52.0); MCHC 30.2 g/dL (28.0-37.0); RBC 4.68 mil/uL (4.50-6.00); RDW 22.3 % (10.5-14.5); WBC 5.4 thou/uL (4.0-11.0)
[2016-12-09 05:51] LABS: MANUAL DIFF YES
[2016-12-09 05:52] LABS: ANION GAP 13 mmol/L (7-16); BUN 5 mg/dL (7-18); CALCIUM 8.7 mg/dL (8.5-10.1); CHLORIDE 100 mmol/L (98-107); CO2 29 mmol/L (21-32); CREATININE 0.5 mg/dL (0.7-1.3); GLUCOSE 116 mg/dL (74-106); POTASSIUM 3.6 mmol/L (3.5-5.1); SODIUM 142 mmol/L (136-145)
[2016-12-09 05:54] LABS: ABG SAMPLE TYPE VENOUS; BE(vivo) 1.8 mmol/L (-2 to +3); HCO3 28.2 mmol/L (22.0-26.0); LACTATE 1.21 mmol/L (0.5-2.0); O2(CT) 10.6 mL/dL (15.0-23.0); O2Hb VENOUS 74.2 (65.0-85.0); PCO2 VENOUS 53.6 mmHg (41.0-51.0); STICK SITE LINE; sO2 VENOUS 82.5 % (65.0-85.0); tCO2 29.8 mmol/L (24.0-30.0)
[2016-12-09 05:56] LABS: ALBUMIN 3.5 g/dL (3.4-5.0); ALKALINE PHOSPHATASE 107 U/L (46-116); MAGNESIUM 1.6 mg/dL (1.8-2.4); SGOT 118 U/L (15-37); SGPT 95 U/L (30-65); TOTAL BILIRUBIN 0.2 mg/dL (<0.1-1.0); TOTAL PROTEIN 8.4 g/dL (6.4-8.2); TROPONIN-I < 0.04 ng/mL (<0.04-0.07)
[2016-12-09 08:02] LABS: ABSOLUTE NEUTROPHILS 1.9 thou/uL (1.4-8.2); ATYPICAL LYMPHS 1 %; TOTAL CELL COUNT 100
[2016-12-09 08:03] LABS: ANISOCYTOSIS 2+; HYPOCHROMASIA 2+; MICROCYTES 2+; POLYCHROMASIA OCCASIONAL
[2016-12-09 13:12] LABS: MAGNESIUM 1.2 mg/dL (1.8-2.4); PHOSPHORUS 4.5 mg/dL (2.5-4.9)
[2016-12-09 14:28] LABS: FOLIC ACID 31.1 ng/mL (8.6-58.9)
[2016-12-10] VITALS (8 sets, daily range): BP systolic 139–163; BP diastolic 86–124
[2016-12-10 02:56] LABS: HEMATOCRIT 26.7 % (42.0-52.0); HEMOGLOBIN 8.1 gm/dL (14.0-18.0); MCHC 30.4 g/dL (28.0-37.0); MCV 68.9 fL (80.0-100.0); RBC 3.88 mil/uL (4.50-6.00); RDW 21.6 % (10.5-14.5); WBC 5.5 thou/uL (4.0-11.0)
[2016-12-10 03:05] LABS: CALCIUM 8.9 mg/dL (8.5-10.1); CREATININE 0.5 mg/dL (0.7-1.3)
== END 2016-12-10 13:00 | disposition left against medical advice (07) | DRG 189 ==
LOC: ER 22:52 → EROBS 12-09 08:42 → ICU 12-09 08:42
PROVIDERS: Emergency Medicine; Internal Medicine
DX: J96.01 Acute respiratory failure with hypoxia (principal); J44.1 Chronic obstructive pulmonary disease with (acute) exacerbation; F10.129 Alcohol abuse with intoxication, unspecified; G40.909 Epilepsy, unspecified, not intractable, without status epilepticus; D63.8 Anemia in other chronic diseases classified elsewhere; F12.90 Cannabis use, unspecified, uncomplicated; M79.604 Pain in right leg; M79.605 Pain in left leg; F32.9 Major depressive disorder, single episode, unspecified; I10 Essential (primary) hypertension; F17.210 Nicotine dependence, cigarettes, uncomplicated; Y90.0 Blood alcohol level of less than 20 mg/100 ml; Z53.21 Procedure and treatment not carried out due to patient leaving prior to being seen by health care provider; Z88.6 Allergy status to analgesic agent; Z79.899 Other long term (current) drug therapy; Z89.512 Acquired absence of left leg below knee; Z89.511 Acquired absence of right leg below knee
CPT/HCPCS: 10078

== ENCOUNTER 2016-12-28 07:28 | Emergency (ER) | payer OTHER ==
[~2016-12-28] VITALS: Ht 137.2 cm; Wt 45.4 kg
[2016-12-28 09:10] LABS: CALCIUM 8.7 mg/dL (8.5-10.1); CREATININE 0.3 mg/dL (0.7-1.3); WBC 3.6 thou/uL (4.0-11.0)
[2016-12-28 09:12] LABS: HEMATOCRIT 30.1 % (42.0-52.0); HEMOGLOBIN 9.4 gm/dL (14.0-18.0); MCH 21.2 pg (26.0-34.0); MCHC 31.4 g/dL (28.0-37.0); MCV 67.6 fL (80.0-100.0); RBC 4.45 mil/uL (4.50-6.00); RDW 22.6 % (10.5-14.5)
[2016-12-28 09:14] LABS: MANUAL DIFF YES
[2016-12-28 10:53] LABS: ABSOLUTE NEUTROPHILS 2.3 thou/uL (1.4-8.2); TOTAL CELL COUNT 100
[2016-12-28 10:54] LABS: PLATELET COUNT 99 thou/uL (150-400)
[2016-12-28 10:57] LABS: ANISOCYTOSIS 2+; HYPOCHROMASIA 1+
== END 2016-12-28 13:25 | disposition home or self-care (01) ==
LOC: ER 07:28
PROVIDERS: Emergency Medicine
DX: F10.120 Alcohol abuse with intoxication, uncomplicated (principal); I10 Essential (primary) hypertension; G40.909 Epilepsy, unspecified, not intractable, without status epilepticus; F32.9 Major depressive disorder, single episode, unspecified; F17.210 Nicotine dependence, cigarettes, uncomplicated; Z88.6 Allergy status to analgesic agent

== ENCOUNTER 2016-12-30 05:05 | Emergency (ER) | payer OTHER ==
[~2016-12-30] VITALS: Ht 137.2 cm; Wt 49.9 kg
[2016-12-30 06:06] LABS: WBC 4.7 thou/uL (4.0-11.0)
[2016-12-30 06:08] LABS: HEMATOCRIT 34.5 % (42.0-52.0); MCH 20.7 pg (26.0-34.0); MCHC 29.1 g/dL (28.0-37.0); MCV 71.2 fL (80.0-100.0); PLATELET COUNT 130 thou/uL (150-400); RBC 4.84 mil/uL (4.50-6.00); RDW 23.3 % (10.5-14.5)
[2016-12-30 06:09] LABS: CREATININE 0.4 mg/dL (0.7-1.3); POTASSIUM 3.4 mmol/L (3.5-5.1)
[2016-12-30 06:13] LABS: MANUAL DIFF YES
[2016-12-30 07:41] LABS: ABSOLUTE NEUTROPHILS 2.7 thou/uL (1.4-8.2); TOTAL CELL COUNT 100
[2016-12-30 07:42] LABS: ANISOCYTOSIS 2+; HYPOCHROMASIA 2+
[2016-12-30 07:43] LABS: MICROCYTES 1+
== END 2016-12-30 08:10 | disposition home or self-care (01) ==
LOC: ER 05:05
PROVIDERS: Emergency Medicine
DX: F10.120 Alcohol abuse with intoxication, uncomplicated (principal); G40.909 Epilepsy, unspecified, not intractable, without status epilepticus; I10 Essential (primary) hypertension; F32.9 Major depressive disorder, single episode, unspecified; F17.210 Nicotine dependence, cigarettes, uncomplicated; Z88.6 Allergy status to analgesic agent

== ENCOUNTER 2017-01-01 05:25 | Emergency (ER) | payer OTHER ==
[~2017-01-01] VITALS: Ht 152.4 cm; Wt 68.0 kg
[2017-01-01] MEDS ORDERED: VALIUM5 MG PO (05:33)
== END 2017-01-01 06:07 | disposition home or self-care (01) ==
LOC: ER 05:25
DX: F10.129 Alcohol abuse with intoxication, unspecified (principal); F32.9 Major depressive disorder, single episode, unspecified; I10 Essential (primary) hypertension; F17.210 Nicotine dependence, cigarettes, uncomplicated; F15.10 Other stimulant abuse, uncomplicated; Z88.6 Allergy status to analgesic agent; W05.0XXA Fall from non-moving wheelchair, initial encounter; Y93.89 Activity, other specified; Y92.89 Other specified places as the place of occurrence of the external cause; Y99.8 Other external cause status

== ENCOUNTER 2017-01-12 20:03 | Emergency (ER) | payer OTHER ==
[~2017-01-12] VITALS: Ht 152.4 cm; Wt 72.6 kg
[~2017-01-12 20:03] MED LIST changes: +VALIUM5 MG PO
[2017-01-12 21:15] LABS: HEMATOCRIT 30.6 % (42.0-52.0); HEMOGLOBIN 9.3 gm/dL (14.0-18.0); MCH 20.6 pg (26.0-34.0); MCHC 30.3 g/dL (28.0-37.0); MCV 68.1 fL (80.0-100.0); RBC 4.49 mil/uL (4.50-6.00); RDW 22.8 % (10.5-14.5); WBC 4.2 thou/uL (4.0-11.0)
[2017-01-12 21:21] LABS: CALCIUM 8.2 mg/dL (8.5-10.1); CREATININE 0.8 mg/dL (0.7-1.3); POTASSIUM 3.1 mmol/L (3.5-5.1)
== END 2017-01-13 02:00 | disposition home or self-care (01) ==
LOC: ER 20:03
PROVIDERS: Emergency Medicine
DX: F10.129 Alcohol abuse with intoxication, unspecified (principal); F32.9 Major depressive disorder, single episode, unspecified; I10 Essential (primary) hypertension; F17.210 Nicotine dependence, cigarettes, uncomplicated; Z88.6 Allergy status to analgesic agent

== ENCOUNTER 2017-01-13 06:44 | Inpatient (IN) | payer OTHER ==
[~2017-01-13] VITALS: Ht 152.4 cm; Wt 72.6 kg
--- NOTE | ~2017-01-13 | EKG ---
[address] [place] [place] [address] ELECTROCARDIOGRAM REPORT Name: MIRIAM TUBBS Room #: 457-P ADM IN M.R.#: [id number] Admission: 01/13/17 Attend Phys: Kojo Ortiz DO Discharge: Date of : 66 Report #: [id number] THIS REPORT FOR: //name// [facility] ED Test Date: 2017-01-13 Test Time: 08:58:26 Pat Name: MIRIAM TUBBS Department: Room: [facility] Gender: M Regional Safety Manager: harjeet : 1970 Requested By: Paulina Mcbride Order Number: [id number] MD: Seferino Howell Measurements Intervals [place] Rate: 101 P: 78 ND: 135 QRS: 78 QRSD: 102 T: 49 QT: 363 QTc: 471 Interpretive Statements Sinus tachycardia Otherwise no significant abnormality Compared to ECG 12/09/2016 07:33:36 No significant changes Electronically Signed On 01-14-2017 7:44:13 CDT by Seferino Howell [email or web address] <ELECTRONICALLY SIGNED> By: Seferino Howell MD, [facility] 01/14/17 0744 0858 7 Seferino Howell MD, [facility] /EPI
[2017-01-13 06:45] VITALS: BP 139/87
[2017-01-13 07:12] LABS: URINE BILIRUBIN NEGATIVE (Negative); URINE BLOOD 1+ (Negative); URINE COLOR YELLOW; URINE GLUCOSE-RANDOM* NEGATIVE (Negative); URINE KETONES NEGATIVE (Negative); URINE NITRITE NEGATIVE (Negative); URINE PROTEIN (DIPSTICK) 2+ (Negative); URINE SPECIFIC GRAVITY >= 1.030 (1.003-1.035); URINE UROBILINOGEN 0.2 E.U./dl (0.2-1.0)
[2017-01-13 07:14] LABS: HEMATOCRIT 26.8 % (42.0-52.0); HEMOGLOBIN 8.3 gm/dL (14.0-18.0); MCHC 30.9 g/dL (28.0-37.0); MCV 67.9 fL (80.0-100.0); PLATELET COUNT 72 thou/uL (150-400); RBC 3.94 mil/uL (4.50-6.00); RDW 22.8 % (10.5-14.5); WBC 4.3 thou/uL (4.0-11.0)
[2017-01-13 07:15] LABS: MANUAL DIFF YES
[2017-01-13 07:23] LABS: ANION GAP 9 mmol/L (7-16); BUN 7 mg/dL (7-18); CALCIUM 8.8 mg/dL (8.5-10.1); CHLORIDE 99 mmol/L (98-107); CO2 29 mmol/L (21-32); CREATININE 0.6 mg/dL (0.7-1.3); GLUCOSE 146 mg/dL (74-106); SODIUM 137 mmol/L (136-145)
[2017-01-13 07:31] LABS: DILANTIN < 0.5 ug/mL (10.0-20.0)
[2017-01-13 08:12] LABS: CASTS None Seen /LPF (None Seen); SQUAMOUS >10 Many /LPF (0-3)
[2017-01-13 08:13] LABS: BACTERIA 1-9 Few /HPF (None Seen); URINE RBC 3-10 Few /HPF (0-2); URINE WBC 0-5 Rare /HPF (0-5)
[2017-01-13 08:14] LABS: AMORPHOUS URATES Moderate /LPF (None Seen)
[2017-01-13 09:12] LABS: ABSOLUTE NEUTROPHILS 3.4 thou/uL (1.4-8.2); ANISOCYTOSIS 1+; HYPOCHROMASIA 2+; LARGE PLATELETS FEW; MICROCYTES 3+; NUCLEATED RBCS 1 /100WBC; PLATELET ESTIMATE DECREASED; TOTAL CELL COUNT 100
[2017-01-13 09:41] LABS: ALBUMIN 3.1 g/dL (3.4-5.0); DIRECT BILIRUBIN 0.1 mg/dL (<0.1-0.3); TOTAL BILIRUBIN 0.4 mg/dL (<0.1-1.0); TOTAL PROTEIN 6.9 g/dL (6.4-8.2)
[2017-01-13 09:44] LABS: PROTIME 10.6 Seconds (9.3-11.4)
[2017-01-13 14:03] VITALS: BP 150/84
[2017-01-13 14:25] VITALS: BP 150/98
[2017-01-13 23:20] VITALS: BP 148/95
[2017-01-14 05:15] VITALS: BP 140/76
[2017-01-14 05:22] VITALS: BP 169/94
[2017-01-14 06:39] LABS: HEMATOCRIT 28.7 % (42.0-52.0); HEMOGLOBIN 8.7 gm/dL (14.0-18.0); MCH 20.6 pg (26.0-34.0); MCHC 30.4 g/dL (28.0-37.0); MCV 67.8 fL (80.0-100.0); PLATELET COUNT 70 thou/uL (150-400); RBC 4.23 mil/uL (4.50-6.00); RDW 22.6 % (10.5-14.5); WBC 4.8 thou/uL (4.0-11.0)
[2017-01-14 06:44] LABS: MANUAL DIFF YES
[2017-01-14 06:58] LABS: ALBUMIN 3.3 g/dL (3.4-5.0); CALCIUM 8.8 mg/dL (8.5-10.1); CREATININE 0.4 mg/dL (0.7-1.3); POTASSIUM 3.2 mmol/L (3.5-5.1); TOTAL BILIRUBIN 0.8 mg/dL (<0.1-1.0); TOTAL PROTEIN 7.3 g/dL (6.4-8.2)
[2017-01-14 09:11] LABS: ABSOLUTE NEUTROPHILS 3.5 thou/uL (1.4-8.2); ANISOCYTOSIS 1+; HYPOCHROMASIA 2+; MICROCYTES 2+; PLATELET ESTIMATE DECREASED; POLYCHROMASIA SLIGHT; TOTAL CELL COUNT 100
[2017-01-14 09:21] VITALS: BP 150/100
[2017-01-14 12:41] VITALS: BP 147/107
[2017-01-14 17:12] VITALS: BP 166/102
[2017-01-14 20:45] VITALS: BP 145/103
[2017-01-15 06:25] LABS: HEMATOCRIT 27.6 % (42.0-52.0); HEMOGLOBIN 8.5 gm/dL (14.0-18.0); MCHC 30.8 g/dL (28.0-37.0); PLATELET COUNT 81 thou/uL (150-400); RBC 4.05 mil/uL (4.50-6.00); RDW 22.9 % (10.5-14.5); WBC 4.2 thou/uL (4.0-11.0)
[2017-01-15 06:27] LABS: MANUAL DIFF YES
[2017-01-15 07:32] LABS: ALBUMIN 3.2 g/dL (3.4-5.0); CALCIUM 8.8 mg/dL (8.5-10.1); CREATININE 0.5 mg/dL (0.7-1.3); DILANTIN 26.8 ug/mL (10.0-20.0); POTASSIUM 3.5 mmol/L (3.5-5.1); TOTAL BILIRUBIN 0.5 mg/dL (<0.1-1.0); TOTAL PROTEIN 7.1 g/dL (6.4-8.2)
[2017-01-15 08:33] LABS: ABSOLUTE NEUTROPHILS 2.6 thou/uL (1.4-8.2); ANISOCYTOSIS 1+; HYPOCHROMASIA 2+; MICROCYTES 3+; PLATELET ESTIMATE SLIGHTLY DECREASED; POLYCHROMASIA 1+; TOTAL CELL COUNT 100
[2017-01-15] MEDS ORDERED: VITAMIN B-1100 M2 PO (10:48)
[2017-01-15] MEDS ORDERED: PEPCID20 MG PO (10:48)
[2017-01-15] MEDS ORDERED: DILANTIN100 MG PO (10:48)
[2017-01-15] MEDS ORDERED: PRENATAL PO (10:48)
[2017-01-15 12:37] VITALS: BP 145/103
[2017-01-15 15:55] VITALS: BP 145/103
== END 2017-01-15 15:30 | disposition home or self-care (01) | DRG 101 ==
LOC: ER 06:44 → EROBS 08:31 → 4W 15:09 → 4S 01-14 16:46
PROVIDERS: Emergency Medicine; Nurse Practitioner Family
DX: G40.909 Epilepsy, unspecified, not intractable, without status epilepticus (principal); E87.6 Hypokalemia; F10.229 Alcohol dependence with intoxication, unspecified; S01.91XA Laceration without foreign body of unspecified part of head, initial encounter; I10 Essential (primary) hypertension; K21.9 Gastro-esophageal reflux disease without esophagitis; F32.9 Major depressive disorder, single episode, unspecified; F17.210 Nicotine dependence, cigarettes, uncomplicated; R00.0 Tachycardia, unspecified; D69.6 Thrombocytopenia, unspecified; Z79.899 Other long term (current) drug therapy; Z88.6 Allergy status to analgesic agent; Z89.511 Acquired absence of right leg below knee
CPT/HCPCS: 10045; 10100

== ENCOUNTER 2017-02-06 02:22 | Emergency (ER) | payer OTHER ==
[~2017-02-06] VITALS: Ht 157.5 cm; Wt 68.0 kg
--- NOTE | ~2017-02-06 | EKG ---
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
[~2017-02-06 02:22] MED LIST changes: +PEPCID20 MG PO; +PRENATAL PO; +VITAMIN B-1100 M2 PO
[2017-02-06 03:56] LABS: POC CA IONIZED 3.8 mg/dL (4.5-5.3); POC CREATININE 1.1 mg/dL (0.6-1.3); POC HEMOGLOBIN 12.2 g/dL (14.0-18.0); POC POTASSIUM 4.8 mmol/L (3.5-5.1)
[2017-02-06 03:58] LABS: HEMATOCRIT 32.7 % (42.0-52.0); MCH 20.5 pg (26.0-34.0); MCHC 30.5 g/dL (28.0-37.0); MCV 67.2 fL (80.0-100.0); RBC 4.87 mil/uL (4.50-6.00); WBC 3.6 thou/uL (4.0-11.0)
[2017-02-06 04:38] LABS: ANION GAP 9 mmol/L (7-16); BUN 8 mg/dL (7-18); CALCIUM 8.9 mg/dL (8.5-10.1); CHLORIDE 100 mmol/L (98-107); CO2 32 mmol/L (21-32); CREATININE 0.5 mg/dL (0.7-1.3); GLUCOSE 111 mg/dL (74-106); POTASSIUM 3.4 mmol/L (3.5-5.1); SODIUM 141 mmol/L (136-145)
[2017-02-06 04:47] LABS: ALBUMIN 3.3 g/dL (3.4-5.0); ALKALINE PHOSPHATASE 135 U/L (46-116); SGOT 81 U/L (15-37); SGPT 60 U/L (30-65); TOTAL BILIRUBIN 0.3 mg/dL (<0.1-1.0); TOTAL PROTEIN 8.1 g/dL (6.4-8.2); TROPONIN-I < 0.04 ng/mL (<0.04-0.07)
== END 2017-02-06 09:00 | disposition home or self-care (01) ==
LOC: ER 02:22
PROVIDERS: Emergency Medicine
DX: F10.120 Alcohol abuse with intoxication, uncomplicated (principal); I10 Essential (primary) hypertension; F32.9 Major depressive disorder, single episode, unspecified; G40.909 Epilepsy, unspecified, not intractable, without status epilepticus; F17.210 Nicotine dependence, cigarettes, uncomplicated; Z88.6 Allergy status to analgesic agent

== ENCOUNTER 2017-02-08 22:02 | Emergency (ER) | payer OTHER ==
[~2017-02-08] VITALS: Ht 157.5 cm; Wt 68.0 kg
== END 2017-02-09 09:20 | disposition home or self-care (01) ==
LOC: ER 22:02
DX: F10.129 Alcohol abuse with intoxication, unspecified (principal); F32.9 Major depressive disorder, single episode, unspecified; I10 Essential (primary) hypertension; F17.210 Nicotine dependence, cigarettes, uncomplicated; Z88.6 Allergy status to analgesic agent

== ENCOUNTER 2017-02-20 17:19 | Inpatient (IN) | payer OTHER ==
[~2017-02-20] VITALS: Ht 121.9 cm; Wt 61.8 kg
--- NOTE | ~2017-02-20 | EKG ---
[address] [address] ELECTROCARDIOGRAM REPORT Name: MIRIAM TUBBS Room #: 170-4 ADM IN M.R.#: [id number] Admission: 02/20/17 Attend Phys: Keith Muñoz Discharge: Date of : 66 Report #: [id number] THIS REPORT FOR: //name// [facility] ED Test Date: 2017-02-20 Test Time: 17:34:09 Pat Name: MIRIAM TUBBS Department: Room: 170 Gender: M Softlines Supervisor: CARO : 1970 Requested By: Colleen Arboleda Order Number: [id number] MD: Demetrius Hyde Measurements Intervals [place] Rate: 101 P: 70 DC: 198 QRS: 94 QRSD: 101 T: 36 QT: 358 QTc: 465 Interpretive Statements Sinus tachycardia Borderline prolonged DC interval Borderline right axis deviation Borderline T abnormalities, anterior leads Compared to ECG 02/06/2017 02:42:03 T-wave abnormality now present Electronically Signed On 02-20-2017 21:51:49 CDT by Demetrius Hyde [email or web address] <ELECTRONICALLY SIGNED> By: Demetrius Hyde MD 02/20/17 2151 1734 1734 Demetrius Hyde MD /EPI
[2017-02-20 17:21] VITALS: BP 128/82
[2017-02-20 18:23] LABS: HEMATOCRIT 34.4 % (42.0-52.0); HEMOGLOBIN 10.5 gm/dL (14.0-18.0); MCH 20.8 pg (26.0-34.0); MCHC 30.5 g/dL (28.0-37.0); PLATELET COUNT 110 thou/uL (150-400); RBC 5.06 mil/uL (4.50-6.00); RDW 23.6 % (10.5-14.5); WBC 3.1 thou/uL (4.0-11.0)
[2017-02-20 18:24] LABS: MANUAL DIFF YES
[2017-02-20 18:31] LABS: ANION GAP 6 mmol/L (7-16); BUN 9 mg/dL (7-18); CALCIUM 8.9 mg/dL (8.5-10.1); CHLORIDE 99 mmol/L (98-107); CO2 36 mmol/L (21-32); CREATININE 0.5 mg/dL (0.7-1.3); GLUCOSE 153 mg/dL (74-106); POTASSIUM 4.7 mmol/L (3.5-5.1); SODIUM 141 mmol/L (136-145)
[2017-02-20 18:40] LABS: ALBUMIN 3.4 g/dL (3.4-5.0); ALKALINE PHOSPHATASE 102 U/L (46-116); SGOT 104 U/L (15-37); SGPT 53 U/L (30-65); TOTAL BILIRUBIN 0.4 mg/dL (<0.1-1.0); TOTAL PROTEIN 8.6 g/dL (6.4-8.2); TROPONIN-I < 0.04 ng/mL (<0.06)
[2017-02-20 18:57] LABS: TOTAL CELL COUNT 100
[2017-02-20 18:59] LABS: ABSOLUTE NEUTROPHILS 2.1 thou/uL (1.4-8.2); ANISOCYTOSIS 1+; MICROCYTES 1+
[2017-02-20 20:04] LABS: URINE BILIRUBIN NEGATIVE (Negative); URINE BLOOD NEGATIVE (Negative); URINE COLOR YELLOW; URINE GLUCOSE-RANDOM* 2+ (Negative); URINE KETONES NEGATIVE (Negative); URINE NITRITE NEGATIVE (Negative); URINE PROTEIN (DIPSTICK) TRACE (Negative); URINE UROBILINOGEN 0.2 E.U./dl (0.2-1.0)
[2017-02-20 22:52] VITALS: BP 120/88
[2017-02-20 23:40] VITALS: BP 122/67
[2017-02-20 23:50] VITALS: BP 145/94
[2017-02-21 03:30] VITALS: BP 147/91
[2017-02-21 04:45] LABS: HEMOGLOBIN 8.7 gm/dL (14.0-18.0)
[2017-02-21 04:47] LABS: HEMATOCRIT 28.7 % (42.0-52.0); MCH 20.7 pg (26.0-34.0); MCHC 30.2 g/dL (28.0-37.0); MCV 68.6 fL (80.0-100.0); RBC 4.19 mil/uL (4.50-6.00)
[2017-02-21 04:54] LABS: MANUAL DIFF YES
[2017-02-21 05:00] LABS: CALCIUM 8.3 mg/dL (8.5-10.1); CREATININE 0.6 mg/dL (0.7-1.3); MAGNESIUM 1.1 mg/dL (1.8-2.4); POTASSIUM 3.2 mmol/L (3.5-5.1)
[2017-02-21 07:28] VITALS: BP 150/89
[2017-02-21 11:07] LABS: ABSOLUTE NEUTROPHILS 0.9 thou/uL (1.4-8.2); METAMYELOCYTES 2 %; MYELOCYTES 2 %; TOTAL CELL COUNT 50
[2017-02-21 11:10] LABS: ANISOCYTOSIS 3+; HYPOCHROMASIA 3+; MICROCYTES 2+; PLATELET COUNT 90 thou/uL (150-400)
[2017-02-21 12:36] VITALS: BP 158/89
[2017-02-21 16:20] VITALS: BP 149/94
[2017-02-21 17:09] LABS: FREE T4 1.06 ng/dL (0.82-1.77)
[2017-02-21 19:56] VITALS: BP 169/83
== END 2017-02-21 23:35 | disposition left against medical advice (07) | DRG 894 ==
LOC: ER 17:19 → EROBS 19:17 → 3W 23:40
PROVIDERS: Hospitalist; Nurse Practitioner; Nurse Practitioner Family
DX: F10.129 Alcohol abuse with intoxication, unspecified (principal); J18.9 Pneumonia, unspecified organism; J96.21 Acute and chronic respiratory failure with hypoxia; D61.811 Other drug-induced pancytopenia; J44.1 Chronic obstructive pulmonary disease with (acute) exacerbation; E46 Unspecified protein-calorie malnutrition; Z68.41 Body mass index [BMI] 40.0-44.9, adult; I10 Essential (primary) hypertension; F10.239 Alcohol dependence with withdrawal, unspecified; F32.9 Major depressive disorder, single episode, unspecified; F17.210 Nicotine dependence, cigarettes, uncomplicated; E87.6 Hypokalemia; E83.42 Hypomagnesemia; F10.229 Alcohol dependence with intoxication, unspecified; K72.90 Hepatic failure, unspecified without coma; G40.909 Epilepsy, unspecified, not intractable, without status epilepticus; Z88.8 Allergy status to other drugs, medicaments and biological substances; Z88.6 Allergy status to analgesic agent; Z91.19 Patient's noncompliance with other medical treatment and regimen
CPT/HCPCS: 10779; 27000

== ENCOUNTER 2017-02-23 17:28 | Emergency (ER) | payer OTHER ==
[~2017-02-23] VITALS: Ht 91.4 cm; Wt 63.5 kg
--- NOTE | ~2017-02-23 | EKG ---
[place] [address] [facility] [place] [address] ELECTROCARDIOGRAM REPORT Name: ARLEYMIRIAM GONZALEZ [facility] [id number] Admission: 02/23/17 Attend Phys: Discharge: 02/23/17 Date of : 66 Report #: [id number] THIS REPORT FOR: //name// [facility] ED Test Date: 2017-02-23 Test Time: 19:59:57 Pat Name: MIRIAM TUBBS Department: Room: Gender: M Truck Hop: [id number] : 1970 Requested By: Luis Carlos Hamilton Order Number: [id number] MD: Seferino Howell Measurements Intervals [place] Rate: 116 P: 82 [place]: 137 QRS: 100 QRSD: 93 T: 51 QT: 350 QTc: 487 Interpretive Statements Sinus tachycardia Possible right ventricular hypertrophy Borderline prolonged QT interval Compared to ECG 02/20/2017 17:34:09 No significant change was found Electronically Signed On 02-24-2017 8:27:04 CDT by Seferino Howell [email or web address] <ELECTRONICALLY SIGNED> By: Seferino Howell MD, [facility] 02/24/17826 58 58 Seferino Howell MD, FACC /EPI
[2017-02-23 19:21] LABS: HEMOGLOBIN 9.5 gm/dL (14.0-18.0); MCH 20.4 pg (26.0-34.0); MCHC 29.8 g/dL (28.0-37.0); MCV 68.5 fL (80.0-100.0); PLATELET COUNT 124 thou/uL (150-400); RBC 4.67 mil/uL (4.50-6.00); RDW 23.3 % (10.5-14.5); WBC 5.6 thou/uL (4.0-11.0)
[2017-02-23 19:22] LABS: MANUAL DIFF YES
[2017-02-23 19:31] LABS: ANION GAP 6 mmol/L (7-16); BUN 10 mg/dL (7-18); CALCIUM 8.9 mg/dL (8.5-10.1); CHLORIDE 101 mmol/L (98-107); CO2 33 mmol/L (21-32); CREATININE 0.5 mg/dL (0.7-1.3); GLUCOSE 99 mg/dL (74-106); SODIUM 140 mmol/L (136-145)
[2017-02-23 19:37] LABS: ALBUMIN 3.2 g/dL (3.4-5.0); ALKALINE PHOSPHATASE 80 U/L (46-116); DIRECT BILIRUBIN < 0.1 mg/dL (<0.1-0.3); SGOT 33 U/L (15-37); SGPT 38 U/L (30-65); TOTAL BILIRUBIN 0.3 mg/dL (<0.1-1.0); TOTAL PROTEIN 7.2 g/dL (6.4-8.2)
[2017-02-23 19:39] LABS: POTASSIUM 2.9 mmol/L (3.5-5.1)
[2017-02-23 19:56] LABS: ABSOLUTE NEUTROPHILS 3.8 thou/uL (1.4-8.2); ANISOCYTOSIS 1+; TOTAL CELL COUNT 100
[2017-02-23 19:57] LABS: HYPOCHROMASIA 3+; MICROCYTES 2+; TARGET CELLS 2+
[2017-02-23 19:58] LABS: POLYCHROMASIA OCCASIONAL
[2017-02-23] MEDS ORDERED: POTASSIUM20 PO (20:20)
== END 2017-02-23 20:55 | disposition home or self-care (01) ==
LOC: ER 17:28
PROVIDERS: Nurse Practitioner
DX: F10.129 Alcohol abuse with intoxication, unspecified (principal); E87.6 Hypokalemia; E83.42 Hypomagnesemia; I10 Essential (primary) hypertension; F32.9 Major depressive disorder, single episode, unspecified; F17.210 Nicotine dependence, cigarettes, uncomplicated; Z88.6 Allergy status to analgesic agent

== ENCOUNTER 2017-03-18 11:32 | Emergency (ER) | payer OTHER ==
[~2017-03-18] VITALS: Ht 177.8 cm; Wt 81.7 kg
[~2017-03-18 11:32] MED LIST changes: +POTASSIUM20 PO
== END 2017-03-18 15:19 | disposition home or self-care (01) ==
LOC: ER 11:32
DX: F10.129 Alcohol abuse with intoxication, unspecified (principal); I10 Essential (primary) hypertension; F32.9 Major depressive disorder, single episode, unspecified; F17.210 Nicotine dependence, cigarettes, uncomplicated; F15.10 Other stimulant abuse, uncomplicated; Z88.6 Allergy status to analgesic agent

== ENCOUNTER 2017-03-29 11:53 | Emergency (ER) | payer OTHER ==
[~2017-03-29] VITALS: Ht 121.9 cm; Wt 63.5 kg
== END 2017-03-29 13:47 | disposition home or self-care (01) ==
LOC: ER 11:53
DX: F10.129 Alcohol abuse with intoxication, unspecified (principal); J98.01 Acute bronchospasm; T14.8XXA Other injury of unspecified body region, initial encounter; I10 Essential (primary) hypertension; F17.210 Nicotine dependence, cigarettes, uncomplicated; Z88.1 Allergy status to other antibiotic agents; Z88.6 Allergy status to analgesic agent; X58.XXXA Exposure to other specified factors, initial encounter; Y93.89 Activity, other specified; Y92.89 Other specified places as the place of occurrence of the external cause; Y99.8 Other external cause status

== ENCOUNTER 2017-03-30 15:06 | Emergency (ER) | payer OTHER ==
[~2017-03-30] VITALS: Ht 162.6 cm; Wt 74.8 kg
== END 2017-03-30 19:44 | disposition home or self-care (01) ==
LOC: ER 15:06
DX: F10.129 Alcohol abuse with intoxication, unspecified (principal); F32.9 Major depressive disorder, single episode, unspecified; I10 Essential (primary) hypertension; F17.210 Nicotine dependence, cigarettes, uncomplicated; Z88.6 Allergy status to analgesic agent

== ENCOUNTER 2017-03-31 18:56 | Emergency (ER) | payer OTHER ==
[~2017-03-31] VITALS: Ht 182.9 cm; Wt 74.8 kg
== END 2017-03-31 23:47 | disposition home or self-care (01) ==
LOC: ER 18:56
DX: F10.129 Alcohol abuse with intoxication, unspecified (principal); I10 Essential (primary) hypertension; E11.9 Type 2 diabetes mellitus without complications; R56.9 Unspecified convulsions; F17.210 Nicotine dependence, cigarettes, uncomplicated; Z88.6 Allergy status to analgesic agent

== ENCOUNTER 2017-04-09 14:10 | Emergency (ER) | payer OTHER | END 2017-04-09 21:02 | disposition home or self-care (01) | LOC: ER 14:10 | DX: F10.129 Alcohol abuse with intoxication, unspecified (principal); I10 Essential (primary) hypertension; F32.9 Major depressive disorder, single episode, unspecified; Z87.891 Personal history of nicotine dependence ==

== ENCOUNTER 2017-04-15 22:14 | Emergency (ER) | payer OTHER ==
[~2017-04-15] VITALS: Ht 91.4 cm; Wt 54.4 kg
== END 2017-04-16 02:19 | disposition home or self-care (01) ==
LOC: ER 22:14
DX: F10.129 Alcohol abuse with intoxication, unspecified (principal); I10 Essential (primary) hypertension; F32.9 Major depressive disorder, single episode, unspecified; F17.210 Nicotine dependence, cigarettes, uncomplicated; Z88.6 Allergy status to analgesic agent

== ENCOUNTER 2017-04-19 16:54 | Emergency (ER) | payer OTHER ==
[~2017-04-19] VITALS: Ht 91.4 cm; Wt 59.0 kg
== END 2017-04-20 05:53 | disposition still patient (30) ==
LOC: ER 16:54
DX: F10.129 Alcohol abuse with intoxication, unspecified (principal); F32.9 Major depressive disorder, single episode, unspecified; I10 Essential (primary) hypertension; F17.210 Nicotine dependence, cigarettes, uncomplicated; Z88.6 Allergy status to analgesic agent

== ENCOUNTER 2017-04-20 15:53 | Emergency (ER) | payer OTHER ==
[~2017-04-20] VITALS: Ht 116.8 cm; Wt 68.0 kg
== END 2017-04-20 18:28 | disposition home or self-care (01) ==
LOC: ER 15:53
DX: F10.129 Alcohol abuse with intoxication, unspecified (principal); I10 Essential (primary) hypertension; F17.210 Nicotine dependence, cigarettes, uncomplicated; F32.9 Major depressive disorder, single episode, unspecified; R56.9 Unspecified convulsions; Z59.0 Homelessness

== ENCOUNTER 2017-04-26 18:57 | Emergency (ER) | payer OTHER ==
[~2017-04-26] VITALS: Ht 91.4 cm; Wt 63.5 kg
[2017-04-27 03:00] VITALS: BP 102/63
== END 2017-04-27 07:32 | disposition home or self-care (01) ==
LOC: ER 18:57
DX: F10.120 Alcohol abuse with intoxication, uncomplicated (principal); F17.210 Nicotine dependence, cigarettes, uncomplicated; I10 Essential (primary) hypertension; F32.9 Major depressive disorder, single episode, unspecified; R56.9 Unspecified convulsions; Z88.6 Allergy status to analgesic agent

== ENCOUNTER 2017-04-27 12:04 | Emergency (ER) | payer OTHER ==
[~2017-04-27] VITALS: Ht 162.6 cm; Wt 63.5 kg
[2017-04-27 12:05] VITALS: BP 124/87
== END 2017-04-27 13:34 | disposition home or self-care (01) ==
LOC: ER 12:04
DX: F10.129 Alcohol abuse with intoxication, unspecified (principal); F32.9 Major depressive disorder, single episode, unspecified; I10 Essential (primary) hypertension; F17.210 Nicotine dependence, cigarettes, uncomplicated; Z88.6 Allergy status to analgesic agent

== ENCOUNTER 2017-04-29 19:05 | Emergency (ER) | payer OTHER ==
[~2017-04-29] VITALS: Ht 149.9 cm; Wt 72.6 kg
[2017-04-29 20:43] VITALS: BP 116/71
== END 2017-04-29 21:00 | disposition home or self-care (01) ==
LOC: ER 19:05
DX: F10.129 Alcohol abuse with intoxication, unspecified (principal); F32.9 Major depressive disorder, single episode, unspecified; I10 Essential (primary) hypertension; F17.210 Nicotine dependence, cigarettes, uncomplicated; Z88.6 Allergy status to analgesic agent

== ENCOUNTER 2017-04-29 22:18 | Emergency (ER) | payer OTHER ==
[~2017-04-29] VITALS: Ht 162.6 cm; Wt 79.4 kg
[2017-04-30 01:25] VITALS: BP 103/56
== END 2017-04-30 03:30 | disposition home or self-care (01) ==
LOC: ER 22:18
DX: F10.10 Alcohol abuse, uncomplicated (principal); Z59.0 Homelessness; F32.9 Major depressive disorder, single episode, unspecified; I10 Essential (primary) hypertension; F17.210 Nicotine dependence, cigarettes, uncomplicated; Z88.6 Allergy status to analgesic agent

== ENCOUNTER 2017-04-30 13:54 | Emergency (ER) | payer OTHER ==
[~2017-04-30] VITALS: Ht 91.4 cm; Wt 59.0 kg
[2017-04-30 22:22] VITALS: BP 110/59
== END 2017-04-30 22:15 | disposition home or self-care (01) ==
LOC: ER 13:54
DX: F10.129 Alcohol abuse with intoxication, unspecified (principal); Z59.0 Homelessness; F32.9 Major depressive disorder, single episode, unspecified; I10 Essential (primary) hypertension; F17.210 Nicotine dependence, cigarettes, uncomplicated; Z88.6 Allergy status to analgesic agent

== ENCOUNTER 2017-05-02 16:50 | Emergency (ER) | payer OTHER ==
[~2017-05-02] VITALS: Ht 121.9 cm; Wt 59.0 kg
[2017-05-02 17:25] LABS: HEMATOCRIT 31.5 % (42.0-52.0); HEMOGLOBIN 9.5 gm/dL (14.0-18.0); MCH 21.7 pg (26.0-34.0); MCHC 30.1 g/dL (28.0-37.0); MCV 72.3 fL (80.0-100.0); PLATELET COUNT 161 thou/uL (150-400); RBC 4.36 mil/uL (4.50-6.00); RDW 23.4 % (10.5-14.5); WBC 9.3 thou/uL (4.0-11.0)
[2017-05-02 17:26] LABS: CALCIUM 8.4 mg/dL (8.5-10.1); CREATININE 0.5 mg/dL (0.7-1.3)
[2017-05-02 17:51] LABS: ABSOLUTE NEUTROPHILS 7.4 thou/uL (1.4-8.2)
[2017-05-02 17:52] LABS: ANISOCYTOSIS 1+; MICROCYTES 1+
[2017-05-02 22:00] VITALS: BP 90/56
== END 2017-05-02 22:00 | disposition home or self-care (01) ==
LOC: ER 16:50
PROVIDERS: Nurse Practitioner
DX: F10.129 Alcohol abuse with intoxication, unspecified (principal); F32.9 Major depressive disorder, single episode, unspecified; I10 Essential (primary) hypertension; R56.9 Unspecified convulsions; F17.210 Nicotine dependence, cigarettes, uncomplicated; Z88.6 Allergy status to analgesic agent

== ENCOUNTER 2017-05-04 01:44 | Emergency (ER) | payer OTHER ==
[~2017-05-04] VITALS: Ht 152.4 cm; Wt 63.5 kg
[2017-05-04 11:23] VITALS: BP 99/65
== END 2017-05-04 12:00 | disposition home or self-care (01) ==
LOC: ER 01:44
DX: F10.129 Alcohol abuse with intoxication, unspecified (principal); F32.9 Major depressive disorder, single episode, unspecified; I10 Essential (primary) hypertension; F17.210 Nicotine dependence, cigarettes, uncomplicated; Z88.6 Allergy status to analgesic agent

== ENCOUNTER 2017-05-07 04:07 | Emergency (ER) | payer OTHER ==
[~2017-05-07] VITALS: Ht 157.5 cm; Wt 74.8 kg
[2017-05-07 07:59] VITALS: BP 118/80
== END 2017-05-07 09:15 | disposition home or self-care (01) ==
LOC: ER 04:07
DX: F10.920 Alcohol use, unspecified with intoxication, uncomplicated (principal); F17.210 Nicotine dependence, cigarettes, uncomplicated; F32.9 Major depressive disorder, single episode, unspecified; I10 Essential (primary) hypertension; R56.9 Unspecified convulsions; Z59.0 Homelessness; Z88.6 Allergy status to analgesic agent

== ENCOUNTER 2017-05-09 03:04 | Emergency (ER) | payer OTHER ==
[~2017-05-09] VITALS: Ht 121.9 cm; Wt 68.0 kg
[2017-05-09 04:30] VITALS: BP 137/83
== END 2017-05-09 04:30 | disposition home or self-care (01) ==
LOC: ER 03:04
DX: F10.129 Alcohol abuse with intoxication, unspecified (principal); Z59.0 Homelessness; T69.9XXA Effect of reduced temperature, unspecified, initial encounter; I10 Essential (primary) hypertension; F32.9 Major depressive disorder, single episode, unspecified; F17.210 Nicotine dependence, cigarettes, uncomplicated; Z88.6 Allergy status to analgesic agent; X31.XXXA Exposure to excessive natural cold, initial encounter; Y93.89 Activity, other specified; Y92.89 Other specified places as the place of occurrence of the external cause; Y99.8 Other external cause status; Y90.9 Presence of alcohol in blood, level not specified

== ENCOUNTER 2017-05-10 03:44 | Emergency (ER) | payer OTHER ==
[~2017-05-10] VITALS: Wt 72.6 kg
[2017-05-10 11:30] VITALS: BP 94/61
== END 2017-05-10 12:10 | disposition home or self-care (01) ==
LOC: ER 03:44
DX: F10.10 Alcohol abuse, uncomplicated (principal); X31.XXXA Exposure to excessive natural cold, initial encounter; I10 Essential (primary) hypertension; F32.9 Major depressive disorder, single episode, unspecified; G40.909 Epilepsy, unspecified, not intractable, without status epilepticus; F17.210 Nicotine dependence, cigarettes, uncomplicated; Z88.6 Allergy status to analgesic agent

== ENCOUNTER 2017-05-10 20:33 | Emergency (ER) | payer OTHER ==
[~2017-05-10] VITALS: Ht 154.9 cm; Wt 68.0 kg
[2017-05-10 20:35] VITALS: BP 115/74
[2017-05-10 22:00] LABS: RDW 23.5 % (10.5-14.5); WBC 4.3 thou/uL (4.0-11.0)
[2017-05-10 22:02] LABS: HEMATOCRIT 33.5 % (42.0-52.0); HEMOGLOBIN 10.1 gm/dL (14.0-18.0); MCH 21.7 pg (26.0-34.0); MCHC 30.2 g/dL (28.0-37.0); MCV 71.7 fL (80.0-100.0); RBC 4.68 mil/uL (4.50-6.00)
[2017-05-10 22:15] LABS: CALCIUM 9.1 mg/dL (8.5-10.1); CREATININE 0.6 mg/dL (0.7-1.3)
[2017-05-10 22:29] LABS: ABSOLUTE NEUTROPHILS 2.9 thou/uL (1.4-8.2); ANISOCYTOSIS 3+; HYPOCHROMASIA 1+; PLATELET COUNT 86 thou/uL (150-400); POLYCHROMASIA OCCASIONAL; TARGET CELLS 1+
[2017-05-10 22:30] LABS: LARGE PLATELETS OCCASIONAL; MACROCYTES 1+; MICROCYTES 2+; OVALOCYTES OCCASIONAL
[2017-05-10 23:11] LABS: URINE BILIRUBIN NEGATIVE (Negative); URINE BLOOD NEGATIVE (Negative); URINE CLARITY CLEAR; URINE COLOR STRAW; URINE GLUCOSE-RANDOM* NEGATIVE (Negative); URINE KETONES NEGATIVE (Negative); URINE LEUKOCYTES-REFLEX NEGATIVE (Negative); URINE NITRITE-REFLEX NEGATIVE (Negative); URINE PROTEIN (DIPSTICK) NEGATIVE (Negative); URINE SPECIFIC GRAVITY <= 1.005 (1.005-1.035); URINE UROBILINOGEN 0.2 E.U./dl (0.2-1.0)
[2017-05-10 23:17] LABS: AMP/METHAMP Negative (Negative); BARBITURATES Negative (Negative); BENZODIAZEPINES Negative (Negative); COCAINE Negative (Negative); METHADONE Negative (Negative); OPIATES Negative (Negative); PCP Negative (Negative)
== END 2017-05-11 06:02 | disposition home or self-care (01) ==
LOC: ER 20:33
PROVIDERS: Emergency Medicine
DX: F10.129 Alcohol abuse with intoxication, unspecified (principal); F32.9 Major depressive disorder, single episode, unspecified; I10 Essential (primary) hypertension; F17.210 Nicotine dependence, cigarettes, uncomplicated; Z88.6 Allergy status to analgesic agent

== ENCOUNTER 2017-05-11 10:37 | Emergency (ER) | payer OTHER ==
[~2017-05-11] VITALS: Ht 91.4 cm; Wt 31.8 kg
[2017-05-11 11:50] VITALS: BP 114/73
== END 2017-05-11 11:52 ==
LOC: ER 10:37
DX: G43.909 Migraine, unspecified, not intractable, without status migrainosus (principal); F10.10 Alcohol abuse, uncomplicated; Z59.0 Homelessness; I10 Essential (primary) hypertension; F17.210 Nicotine dependence, cigarettes, uncomplicated; F32.9 Major depressive disorder, single episode, unspecified; Z88.6 Allergy status to analgesic agent

== ENCOUNTER 2017-05-14 20:19 | Emergency (ER) | payer OTHER ==
[~2017-05-14] VITALS: Ht 185.4 cm; Wt 81.7 kg
== END 2017-05-14 23:10 ==
LOC: ER 20:19
DX: F10.920 Alcohol use, unspecified with intoxication, uncomplicated (principal); I10 Essential (primary) hypertension; F32.9 Major depressive disorder, single episode, unspecified; R56.9 Unspecified convulsions; F17.210 Nicotine dependence, cigarettes, uncomplicated; Z88.6 Allergy status to analgesic agent

== ENCOUNTER 2017-05-21 04:34 | Emergency (ER) | payer OTHER ==
[~2017-05-21] VITALS: Ht 121.9 cm; Wt 63.5 kg
[2017-05-21 07:08] VITALS: BP 103/58
== END 2017-05-21 07:09 | disposition home or self-care (01) ==
LOC: ER 04:34
DX: F10.10 Alcohol abuse, uncomplicated (principal); Y90.9 Presence of alcohol in blood, level not specified; I10 Essential (primary) hypertension; F17.210 Nicotine dependence, cigarettes, uncomplicated; Z88.6 Allergy status to analgesic agent

== ENCOUNTER 2017-06-06 21:41 | Emergency (ER) | payer OTHER ==
[~2017-06-06] VITALS: Ht 134.6 cm; Wt 68.0 kg
[2017-06-07 04:40] VITALS: BP 128/90
== END 2017-06-07 04:40 | disposition home or self-care (01) ==
LOC: ER 21:41
DX: F10.129 Alcohol abuse with intoxication, unspecified (principal); F32.9 Major depressive disorder, single episode, unspecified; I10 Essential (primary) hypertension; F17.210 Nicotine dependence, cigarettes, uncomplicated; Z59.0 Homelessness; Z88.6 Allergy status to analgesic agent

== ENCOUNTER 2017-06-15 19:08 | Emergency (ER) | payer OTHER ==
[~2017-06-15] VITALS: Ht 152.4 cm; Wt 68.0 kg
[2017-06-15 21:40] VITALS: BP 113/72
== END 2017-06-15 21:41 | disposition home or self-care (01) ==
LOC: ER 19:08
DX: S60.022A Contusion of left index finger without damage to nail, initial encounter (principal); I10 Essential (primary) hypertension; F17.210 Nicotine dependence, cigarettes, uncomplicated; W07.XXXA Fall from chair, initial encounter; Y93.89 Activity, other specified; Y92.89 Other specified places as the place of occurrence of the external cause; Y99.8 Other external cause status

== ENCOUNTER 2017-06-19 00:13 | Emergency (ER) | payer OTHER ==
[~2017-06-19] VITALS: Ht 121.9 cm; Wt 59.0 kg
[2017-06-19 02:15] VITALS: BP 112/65
== END 2017-06-19 02:16 | disposition home or self-care (01) ==
LOC: ER 00:13
DX: S60.022A Contusion of left index finger without damage to nail, initial encounter (principal); F10.129 Alcohol abuse with intoxication, unspecified; I10 Essential (primary) hypertension; F32.9 Major depressive disorder, single episode, unspecified; Z88.6 Allergy status to analgesic agent; F17.210 Nicotine dependence, cigarettes, uncomplicated; X58.XXXA Exposure to other specified factors, initial encounter; Y93.89 Activity, other specified; Y92.89 Other specified places as the place of occurrence of the external cause; Y99.8 Other external cause status

== ENCOUNTER 2017-06-19 11:38 | Emergency (ER) | payer OTHER ==
[~2017-06-19] VITALS: Ht 91.4 cm; Wt 65.3 kg
[2017-06-19 16:30] VITALS: BP 109/70
== END 2017-06-19 16:30 | disposition home or self-care (01) ==
LOC: ER 11:38
DX: S60.041A Contusion of right ring finger without damage to nail, initial encounter (principal); F10.129 Alcohol abuse with intoxication, unspecified; I10 Essential (primary) hypertension; F32.9 Major depressive disorder, single episode, unspecified; Z88.6 Allergy status to analgesic agent; X58.XXXA Exposure to other specified factors, initial encounter; Y93.89 Activity, other specified; Y92.89 Other specified places as the place of occurrence of the external cause; Y99.8 Other external cause status

== ENCOUNTER 2017-06-20 02:09 | Emergency (ER) | payer OTHER ==
[~2017-06-20] VITALS: Ht 91.4 cm; Wt 65.3 kg
[2017-06-20 02:11] VITALS: BP 122/82
== END 2017-06-20 02:42 | disposition home or self-care (01) ==
LOC: ER 02:09
DX: T33.532A Superficial frostbite of left finger(s), initial encounter (principal); F10.129 Alcohol abuse with intoxication, unspecified; I10 Essential (primary) hypertension; F32.9 Major depressive disorder, single episode, unspecified; F17.210 Nicotine dependence, cigarettes, uncomplicated; Z88.6 Allergy status to analgesic agent; Z59.0 Homelessness; X58.XXXA Exposure to other specified factors, initial encounter

== ENCOUNTER 2017-06-22 01:42 | Emergency (ER) | payer OTHER ==
[~2017-06-22] VITALS: Ht 132.1 cm; Wt 68.0 kg
[2017-06-22] MEDS ORDERED: NOHOMEMEDICATIONS (01:46)
== END 2017-06-22 03:07 | disposition home or self-care (01) ==
LOC: ER 01:42
DX: S09.92XA Unspecified injury of nose, initial encounter (principal); F10.129 Alcohol abuse with intoxication, unspecified; I10 Essential (primary) hypertension; F32.9 Major depressive disorder, single episode, unspecified; F17.210 Nicotine dependence, cigarettes, uncomplicated; Z88.6 Allergy status to analgesic agent; W07.XXXA Fall from chair, initial encounter; Y93.89 Activity, other specified; Y92.89 Other specified places as the place of occurrence of the external cause; Y99.8 Other external cause status

== ENCOUNTER 2017-06-27 12:05 | Emergency (ER) | payer OTHER ==
[~2017-06-27] VITALS: Ht 91.4 cm; Wt 65.3 kg
[~2017-06-27 12:05] MED LIST changes: +NOHOMEMEDICATIONS
[2017-06-27 15:39] VITALS: BP 148/98
== END 2017-06-27 15:39 | disposition home or self-care (01) ==
LOC: ER 12:05
DX: S09.90XA Unspecified injury of head, initial encounter (principal); F10.10 Alcohol abuse, uncomplicated; F32.9 Major depressive disorder, single episode, unspecified; I10 Essential (primary) hypertension; F17.210 Nicotine dependence, cigarettes, uncomplicated; Z88.6 Allergy status to analgesic agent; W05.0XXA Fall from non-moving wheelchair, initial encounter; Y93.89 Activity, other specified; Y92.89 Other specified places as the place of occurrence of the external cause; Y99.8 Other external cause status

== ENCOUNTER 2017-07-05 01:07 | Emergency (ER) | payer OTHER ==
[~2017-07-05] VITALS: Ht 91.4 cm; Wt 65.3 kg
[2017-07-05 03:43] VITALS: BP 132/78
== END 2017-07-05 03:45 | disposition home or self-care (01) ==
LOC: ER 01:07
DX: F10.129 Alcohol abuse with intoxication, unspecified (principal); I10 Essential (primary) hypertension; F32.9 Major depressive disorder, single episode, unspecified; F17.210 Nicotine dependence, cigarettes, uncomplicated; Z88.6 Allergy status to analgesic agent

== ENCOUNTER 2017-07-10 21:12 | Emergency (ER) | payer OTHER ==
[2017-07-11 05:28] VITALS: BP 152/78
== END 2017-07-10 22:00 | disposition home or self-care (01) ==
LOC: ER 21:12
DX: F10.20 Alcohol dependence, uncomplicated (principal); I10 Essential (primary) hypertension; F32.9 Major depressive disorder, single episode, unspecified; F17.210 Nicotine dependence, cigarettes, uncomplicated; Z89.612 Acquired absence of left leg above knee; Z88.6 Allergy status to analgesic agent

== ENCOUNTER 2017-07-14 18:58 | Emergency (ER) | payer OTHER ==
[~2017-07-14] VITALS: Ht 157.5 cm; Wt 68.0 kg
[2017-07-14 20:22] VITALS: BP 135/89
== END 2017-07-14 20:38 | disposition home or self-care (01) ==
LOC: ER 18:58
DX: F10.129 Alcohol abuse with intoxication, unspecified (principal); I10 Essential (primary) hypertension; F32.9 Major depressive disorder, single episode, unspecified; F17.210 Nicotine dependence, cigarettes, uncomplicated; Z88.6 Allergy status to analgesic agent

== ENCOUNTER 2017-07-18 12:54 | Emergency (ER) | payer OTHER ==
[~2017-07-18] VITALS: Ht 127 cm; Wt 68.0 kg
[2017-07-18 14:27] VITALS: BP 122/77
== END 2017-07-18 14:36 | disposition home or self-care (01) ==
LOC: ER 12:54
DX: F10.229 Alcohol dependence with intoxication, unspecified (principal); I10 Essential (primary) hypertension; F32.9 Major depressive disorder, single episode, unspecified; F17.210 Nicotine dependence, cigarettes, uncomplicated; Z88.6 Allergy status to analgesic agent

== ENCOUNTER 2017-07-22 02:54 | Emergency (ER) | payer OTHER ==
[~2017-07-22] VITALS: Ht 127 cm; Wt 54.4 kg
[2017-07-23] MEDS ORDERED: DILANTIN100 MG PO (20:12)
== END 2017-07-22 05:40 | disposition home or self-care (01) ==
LOC: ER 02:54
DX: F10.129 Alcohol abuse with intoxication, unspecified (principal); F32.9 Major depressive disorder, single episode, unspecified; I10 Essential (primary) hypertension; F17.210 Nicotine dependence, cigarettes, uncomplicated; Z88.6 Allergy status to analgesic agent

== ENCOUNTER 2017-07-23 11:38 | Inpatient (IN) | payer OTHER ==
[~2017-07-23] VITALS: Ht 172.7 cm; Wt 58.2 kg
--- NOTE | ~2017-07-23 | HC ---
[facility] [place] [address] CONSULTATION Name: MIRIAM TUBBS JR Room #: 362-P ADM IN M.R.#: [id number] Admission: 07/23/17 Attend Phys: Reynaldo Draepr DO Discharge: Date of : 66 Report #: [id number] THIS REPORT FOR: //name// CC: CHELSIE physician/PCP Reynaldo Draper DATE OF SERVICE: 07/24/2017 PERSONAL PHYSICIAN: None on staff. CHIEF COMPLAINT: Left lngsf-zwo-xuav amputation stump wound and left index finger wound. HISTORY OF PRESENT ILLNESS: This is a 47-year-old white male with a history of alcohol abuse who is homeless, was found on the side of the road yesterday and when EMS came to see the patient, he requested to go to the hospital. The patient was found to be intoxicated with an alcohol level of 435 and was admitted for acute alcohol intoxication. The patient was also complaining of a chronic wound on his left hmfai-hxd-cwjn amputation stump. The patient also complains of left index finger wound, which he says is from frostbite several weeks ago. The patient denies any other associated wounds at this time. We have been asked to assist in the care of these wounds while he is here. PAST MEDICAL HISTORY: Significant for alcohol abuse, seizures, hypertension. PAST SURGICAL HISTORY: Previous left olvcx-xgd-efgx amputation and right iffyo-vsy-fbxq amputation. CURRENT MEDICATIONS: None. ALLERGIES: IBUPROFEN and TYLENOL. SOCIAL HISTORY: The patient is homeless, still smokes cigarettes approximately 1 pack of cigarettes daily, drinks alcohol on a daily basis. REVIEW OF SYSTEMS: CONSTITUTIONAL: The patient denies fevers or chills. NEUROLOGIC: The patient has overall generalized weakness, but no isolated weakness in arms or legs. EYES: No complaints. ENT: No complaints. CARDIAC: The patient denies chest pain, palpitations, peripheral edema. RESPIRATORY: The patient denies shortness breath, cough or wheezes. GASTROINTESTINAL: The patient denies nausea, vomiting, abdominal pain. GENITOURINARY: The patient denies urgency, frequency. MUSCULOSKELETAL: No complaints. [facility] [address] [place] [address] CONSULTATION Name: ARLEYMIRIAM CARLOS Room #: 362-P [facility] IN M.R.#: [id number] Admission: 07/23/17 Attend Phys: Reynaldo Draper DO Discharge: Date of : 66 Report #: [id number] SKIN: The patient has a black eschar on his left above the amputation site and a dry eschar on his left index finger. PHYSICAL EXAMINATION: VITAL SIGNS: Temperature 36.7, pulse 111, respiration 18, BP 163/117. GENERAL: This is alert and oriented x 2, extremely unkempt white male who is in ldxt-sj-hlltadnf distress secondary to tremors. HEENT: Normocephalic, atraumatic. Mucous membranes are dry. Pupils are round. Conjunctivae are injected. LUNGS: Clear. HEART: Regular, without murmur. ABDOMEN: Soft, essentially nontender. EXTREMITIES: The patient's left index finger reveals a dry eschar which is intact without signs of infection on the tip. There is no evidence of any exposed bone. Evaluation of left xwagc-jge-vdbt amputation stump reveals a black eschar which is dry and intact on the underside of the stump. There are no signs of infection, erythema, or warmth. Right stump is intact. NEUROLOGIC: Cranial nerves 2-12 grossly intact. Motor and sensory grossly intact. LABORATORY VALUES: White count 8.1, hemoglobin 10.1. Albumin 2.9. IMPRESSION: 1. Chronic ulceration of left snkjg-fae-ivao amputation stump with dry, intact eschar. 2. History of frostbite to tip of the left index finger with dry, intact eschar. 3. History of alcohol abuse. PLAN: The patient will have Betadine applied to both of these wound sites daily. We will continue to watch the patient while he is here and continue all of his other current medications now. <ELECTRONICALLY SIGNED> By: Nazario Thompson MD 08/03/17 0934 1323 191 Nazario Thompson MD /nt
[2017-07-23 11:47] VITALS: BP 135/93
[2017-07-23 13:39] LABS: ANION GAP 7 mmol/L (7-16); BUN 7 mg/dL (7-18); CALCIUM 8.3 mg/dL (8.5-10.1); CHLORIDE 104 mmol/L (98-107); CO2 37 mmol/L (21-32); CREATININE 0.5 mg/dL (0.7-1.3); GLUCOSE 155 mg/dL (74-106); SODIUM 148 mmol/L (136-145)
[2017-07-23 13:40] LABS: POTASSIUM 3.3 mmol/L (3.5-5.1)
[2017-07-23 13:45] LABS: ALBUMIN 2.9 g/dL (3.4-5.0); DIRECT BILIRUBIN < 0.1 mg/dL (<0.1-0.3); SALICYLATE < 2.8 mg/dL (2.8-20.0); SGOT 51 U/L (15-37); SGPT 24 U/L (30-65); TOTAL BILIRUBIN 0.3 mg/dL (<0.1-1.0); TOTAL PROTEIN 7.7 g/dL (6.4-8.2)
[2017-07-23 14:49] LABS: HEMOGLOBIN 10.1 gm/dL (14.0-18.0); MCHC 30.7 g/dL (28.0-37.0); MCV 71.6 fL (80.0-100.0); RBC 4.61 mil/uL (4.50-6.00); RDW 22.8 % (10.5-14.5)
[2017-07-23 15:19] LABS: ABSOLUTE NEUTROPHILS 3.3 thou/uL (1.4-8.2)
[2017-07-23 15:20] LABS: ANISOCYTOSIS 2+; HYPOCHROMASIA 2+; MICROCYTES 1+
[2017-07-23 15:21] LABS: OVALOCYTES OCCASIONAL; TARGET CELLS 1+; TEARDROPS OCCASIONAL
[2017-07-23 15:54] LABS: URINE BILIRUBIN NEGATIVE (Negative); URINE BLOOD NEGATIVE (Negative); URINE CLARITY CLEAR; URINE COLOR YELLOW; URINE GLUCOSE-RANDOM* NEGATIVE (Negative); URINE KETONES NEGATIVE (Negative); URINE LEUKOCYTES NEGATIVE (Negative); URINE NITRITE NEGATIVE (Negative); URINE PROTEIN (DIPSTICK) NEGATIVE (Negative); URINE SPECIFIC GRAVITY <= 1.005 (1.005-1.035); URINE UROBILINOGEN 0.2 E.U./dl (0.2-1.0)
[2017-07-23 15:55] LABS: MAGNESIUM 1.5 mg/dL (1.8-2.4); PHOSPHORUS 4.6 mg/dL (2.5-4.9)
[2017-07-23 16:00] LABS: AMP/METHAMP Negative (Negative); BARBITURATES Negative (Negative); BENZODIAZEPINES Negative (Negative); COCAINE Negative (Negative); METHADONE Negative (Negative); OPIATES Negative (Negative); PCP Negative (Negative)
[2017-07-23 18:12] VITALS: BP 122/71
[2017-07-23 19:10] VITALS: BP 134/77
[2017-07-23] MEDS ORDERED: DILANTIN100 MG PO (20:12)
[2017-07-23 23:59] VITALS: BP 144/96
[2017-07-24] VITALS (7 sets, daily range): BP systolic 138–171; BP diastolic 98–117
[2017-07-24 05:48] LABS: HEMOGLOBIN 10.1 gm/dL (14.0-18.0); MCHC 29.7 g/dL (28.0-37.0); RBC 4.62 mil/uL (4.50-6.00)
[2017-07-24 05:50] LABS: MCH 21.9 pg (26.0-34.0); MCV 73.6 fL (80.0-100.0); RDW 23.5 % (10.5-14.5); WBC 8.1 thou/uL (4.0-11.0)
[2017-07-24 05:56] LABS: CALCIUM 8.7 mg/dL (8.5-10.1); CREATININE 0.7 mg/dL (0.7-1.3); POTASSIUM 3.2 mmol/L (3.5-5.1)
[2017-07-24 08:28] LABS: ABSOLUTE NEUTROPHILS 4.9 thou/uL (1.4-8.2); ANISOCYTOSIS 2+; POIKILOCYTOSIS 1+
[2017-07-24 08:29] LABS: HYPOCHROMASIA 1+; PLATELET COUNT 110 thou/uL (150-400)
[2017-07-24 08:31] LABS: MICROCYTES SLIGHT; OVALOCYTES OCCASIONAL
[2017-07-24 16:32] LABS: MAGNESIUM 1.1 mg/dL (1.8-2.4); POTASSIUM 3.6 mmol/L (3.5-5.1)
[2017-07-25] VITALS (7 sets, daily range): BP systolic 112–154; BP diastolic 44–108
[2017-07-25 05:07] LABS: CALCIUM 9.8 mg/dL (8.5-10.1); CREATININE 0.4 mg/dL (0.7-1.3); MAGNESIUM 2.5 mg/dL (1.8-2.4); PHOSPHORUS 2.4 mg/dL (2.5-4.9); POTASSIUM 3.1 mmol/L (3.5-5.1)
[2017-07-26] VITALS (20 sets, daily range): BP systolic 130–171; BP diastolic 77–117
[2017-07-26 06:38] LABS: CALCIUM 9.3 mg/dL (8.5-10.1); CREATININE 0.5 mg/dL (0.7-1.3); POTASSIUM 3.7 mmol/L (3.5-5.1)
[2017-07-26 06:43] LABS: HEMATOCRIT 28.4 % (42.0-52.0); HEMOGLOBIN 8.8 gm/dL (14.0-18.0); MCV 70.9 fL (80.0-100.0); PLATELET COUNT 100 thou/uL (150-400); RBC 4.01 mil/uL (4.50-6.00); WBC 4.3 thou/uL (4.0-11.0)
[2017-07-26 07:21] LABS: ABSOLUTE NEUTROPHILS 2.8 thou/uL (1.4-8.2)
[2017-07-26 07:23] LABS: ANISOCYTOSIS 2+; MICROCYTES 1+
[2017-07-26 07:24] LABS: HYPOCHROMASIA 2+; OVALOCYTES OCCASIONAL; TARGET CELLS 1+; TEARDROPS OCCASIONAL
[2017-07-27] VITALS (18 sets, daily range): BP systolic 121–161; BP diastolic 76–126
[2017-07-27 04:19] LABS: CALCIUM 10.3 mg/dL (8.5-10.1); CREATININE 0.8 mg/dL (0.7-1.3); HEMATOCRIT 30.2 % (42.0-52.0); HEMOGLOBIN 9.3 gm/dL (14.0-18.0); MCHC 30.7 g/dL (28.0-37.0); POTASSIUM 3.9 mmol/L (3.5-5.1); RBC 4.22 mil/uL (4.50-6.00); WBC 5.7 thou/uL (4.0-11.0)
[2017-07-27 04:21] LABS: MCV 71.6 fL (80.0-100.0); PLATELET COUNT 144 thou/uL (150-400); RDW 23.2 % (10.5-14.5)
[2017-07-27 08:06] LABS: ABSOLUTE NEUTROPHILS 3.5 thou/uL (1.4-8.2)
[2017-07-27 08:08] LABS: ANISOCYTOSIS 3+; HYPOCHROMASIA 2+; MICROCYTES 1+
[2017-07-27 08:09] LABS: POLYCHROMASIA OCCASIONAL
[2017-07-28] VITALS (17 sets, daily range): BP systolic 108–167; BP diastolic 70–104
[2017-07-28 05:12] LABS: HEMATOCRIT 30.2 % (42.0-52.0)
[2017-07-28 05:13] LABS: HEMOGLOBIN 9.1 gm/dL (14.0-18.0); MCH 22.2 pg (26.0-34.0); MCHC 30.1 g/dL (28.0-37.0); MCV 73.9 fL (80.0-100.0); RBC 4.09 mil/uL (4.50-6.00); RDW 23.2 % (10.5-14.5); WBC 7.6 thou/uL (4.0-11.0)
[2017-07-28 05:19] LABS: CALCIUM 9.5 mg/dL (8.5-10.1); CREATININE 0.5 mg/dL (0.7-1.3); POTASSIUM 3.8 mmol/L (3.5-5.1)
[2017-07-28 06:23] LABS: PLATELET COUNT 140 thou/uL (150-400)
[2017-07-28 06:26] LABS: ABSOLUTE NEUTROPHILS 3.8 thou/uL (1.4-8.2); ANISOCYTOSIS 3+; HYPOCHROMASIA 2+; METAMYELOCYTES 1 %; MICROCYTES 1+; POLYCHROMASIA 1+
[2017-07-29] VITALS (18 sets, daily range): BP systolic 119–154; BP diastolic 66–99
[2017-07-29 06:29] LABS: HEMATOCRIT 29.4 % (42.0-52.0); MCH 22.3 pg (26.0-34.0); MCHC 30.6 g/dL (28.0-37.0); RBC 4.03 mil/uL (4.50-6.00); RDW 23.1 % (10.5-14.5); WBC 4.6 thou/uL (4.0-11.0)
[2017-07-29 06:43] LABS: CALCIUM 9.3 mg/dL (8.5-10.1); CREATININE 0.6 mg/dL (0.7-1.3); POTASSIUM 3.6 mmol/L (3.5-5.1)
[2017-07-29 07:47] LABS: ABSOLUTE NEUTROPHILS 2.8 thou/uL (1.4-8.2); ANISOCYTOSIS 3+; HYPOCHROMASIA 2+; MICROCYTES 1+
[2017-07-29 07:48] LABS: PLATELET COUNT 155 thou/uL (150-400)
[2017-07-30] VITALS (11 sets, daily range): BP systolic 133–174; BP diastolic 77–121
[2017-07-30 05:16] LABS: WBC 4.3 thou/uL (4.0-11.0)
[2017-07-30 05:30] LABS: CREATININE 0.5 mg/dL (0.7-1.3); POTASSIUM 3.5 mmol/L (3.5-5.1)
[2017-07-30 05:37] LABS: ALBUMIN 3.2 g/dL (3.4-5.0); DIRECT BILIRUBIN 0.1 mg/dL (<0.1-0.3); TOTAL BILIRUBIN 0.2 mg/dL (<0.1-1.0)
[2017-07-30 05:45] LABS: HEMATOCRIT 28.9 % (42.0-52.0); HEMOGLOBIN 8.9 gm/dL (14.0-18.0); RBC 3.97 mil/uL (4.50-6.00)
[2017-07-30 05:46] LABS: MCH 22.5 pg (26.0-34.0); MCV 72.7 fL (80.0-100.0); PLATELET COUNT 196 thou/uL (150-400); RDW 24.5 % (10.5-14.5)
[2017-07-30 07:43] LABS: ABSOLUTE NEUTROPHILS 2.5 thou/uL (1.4-8.2)
[2017-07-30 07:44] LABS: ANISOCYTOSIS 3+; HYPOCHROMASIA 2+; MICROCYTES 1+
[2017-07-31 08:02] VITALS: BP 133/90
[2017-07-31 16:09] VITALS: BP 118/89
[2017-07-31 20:30] VITALS: BP 113/78
[2017-08-01 08:18] VITALS: BP 121/87
[2017-08-01 15:33] VITALS: BP 103/69
[2017-08-01 19:20] VITALS: BP 138/86
[2017-08-02 04:40] VITALS: BP 122/85
[2017-08-02 10:33] VITALS: BP 130/91
[2017-08-02 15:37] VITALS: BP 141/81
[2017-08-02 20:10] VITALS: BP 138/88
[2017-08-03 04:25] VITALS: BP 142/95
[2017-08-03 08:12] VITALS: BP 120/81
[2017-08-03 18:30] VITALS: BP 130/85
[2017-08-03 21:20] VITALS: BP 128/87
[2017-08-04 04:26] VITALS: BP 119/85
[2017-08-04 13:03] VITALS: BP 126/87
[2017-08-04 17:33] VITALS: BP 118/85
[2017-08-04 20:03] VITALS: BP 103/72
[2017-08-05 06:17] VITALS: BP 110/69
[2017-08-05 07:42] VITALS: BP 118/70
[2017-08-05 16:00] VITALS: BP 130/91
[2017-08-05 19:26] VITALS: BP 121/82
[2017-08-06 03:35] VITALS: BP 118/78
[2017-08-06 07:36] VITALS: BP 126/82
[2017-08-06 12:06] VITALS: BP 138/90
[2017-08-06 16:09] VITALS: BP 124/86
[2017-08-06 19:25] VITALS: BP 134/87
[2017-08-07 03:50] VITALS: BP 137/86
[2017-08-07 07:39] VITALS: BP 135/83
[2017-08-07 08:50] LABS: HEMOGLOBIN 11.3 gm/dL (14.0-18.0); RBC 4.77 mil/uL (4.50-6.00)
[2017-08-07 08:51] LABS: HEMATOCRIT 35.9 % (42.0-52.0); MCH 23.8 pg (26.0-34.0); MCHC 31.7 g/dL (28.0-37.0); MCV 75.1 fL (80.0-100.0); PLATELET COUNT 513 thou/uL (150-400); RDW 27.6 % (10.5-14.5); WBC 7.2 thou/uL (4.0-11.0)
[2017-08-07 08:56] LABS: CALCIUM 10.2 mg/dL (8.5-10.1); CREATININE 0.7 mg/dL (0.7-1.3); POTASSIUM 3.9 mmol/L (3.5-5.1)
[2017-08-07 09:27] LABS: ABSOLUTE NEUTROPHILS 4.6 thou/uL (1.4-8.2); ANISOCYTOSIS 2+
[2017-08-07 11:17] VITALS: BP 132/87
[2017-08-07 19:30] VITALS: BP 133/93
[2017-08-08 00:03] VITALS: BP 134/76
[2017-08-08 04:00] VITALS: BP 143/93
[2017-08-08 08:14] VITALS: BP 130/84
[2017-08-08 15:36] VITALS: BP 91/62
[2017-08-08 19:40] VITALS: BP 114/89
[2017-08-09 03:32] VITALS: BP 123/73
[2017-08-09 07:50] VITALS: BP 133/93
[2017-08-09 14:21] VITALS: BP 161/92
[2017-08-09 15:38] VITALS: BP 134/91
[2017-08-10 04:47] VITALS: BP 148/82
[2017-08-10 08:00] VITALS: BP 130/81
[2017-08-10 15:55] VITALS: BP 122/81
[2017-08-11 08:04] LABS: HEMATOCRIT 34.8 % (42.0-52.0); MCH 24.3 pg (26.0-34.0); MCHC 31.6 g/dL (28.0-37.0); MCV 76.9 fL (80.0-100.0); RBC 4.53 mil/uL (4.50-6.00); RDW 27.7 % (10.5-14.5); WBC 7.6 thou/uL (4.0-11.0)
[2017-08-11 08:13] VITALS: BP 115/81
[2017-08-11 18:12] VITALS: BP 125/82
[2017-08-11 20:00] VITALS: BP 123/79
[2017-08-12 03:25] VITALS: BP 109/73
[2017-08-12 08:00] VITALS: BP 98/62
[2017-08-12 16:45] VITALS: BP 157/94
[2017-08-12 19:45] VITALS: BP 146/89
[2017-08-13 03:40] VITALS: BP 122/85
[2017-08-13 07:38] VITALS: BP 109/62
[2017-08-13 11:38] VITALS: BP 130/93
[2017-08-13 15:45] VITALS: BP 120/83
[2017-08-13 20:00] VITALS: BP 139/87
[2017-08-14 07:57] VITALS: BP 121/74
[2017-08-14] MEDS ORDERED: VISTARIL 25 MG25 M1 PO (14:31)
[2017-08-14] MEDS ORDERED: OLANZAPINE ODT5 MG PO (14:31)
[2017-08-14] MEDS ORDERED: PEPCID20 MG PO (14:31)
[2017-08-14] MEDS ORDERED: HALOPERIDOL 5 MG5 MG PO (14:31)
[2017-08-14] MEDS ORDERED: AMLODIPINE BESYL5 MG PO (14:31)
[2017-08-14] MEDS ORDERED: ZYPREXA 5 MG TAB5 M1 PO (14:31)
[2017-08-14] MEDS ORDERED: VITAMIN B-1100 M2 PO (14:31)
[2017-08-14] MEDS ORDERED: OXYCODONE HCL 55 MG PO (14:31)
[2017-08-14] MEDS ORDERED: PRENATAL COMPL1 EACH PO (14:31)
[2017-08-14] MEDS ORDERED: TRAMADOL 50 MG50 MG PO (14:40)
== END 2017-08-14 17:14 | disposition short-term general hospital (02) | DRG 897 ==
LOC: ER 11:38 → EROBS 15:07 → 3W 19:11 → ICU 07-26 07:03 → 3W 07-30 16:46
PROVIDERS: Family Medicine; Physician Assistant; Psychiatry & Neurology Psychiatry
DX: F10.27 Alcohol dependence with alcohol-induced persisting dementia (principal); L97.829 Non-pressure chronic ulcer of other part of left lower leg with unspecified severity; Y90.9 Presence of alcohol in blood, level not specified; F17.210 Nicotine dependence, cigarettes, uncomplicated; G40.909 Epilepsy, unspecified, not intractable, without status epilepticus; F32.9 Major depressive disorder, single episode, unspecified; F10.231 Alcohol dependence with withdrawal delirium; I10 Essential (primary) hypertension; Z88.6 Allergy status to analgesic agent; Z59.0 Homelessness; Z88.8 Allergy status to other drugs, medicaments and biological substances; Z89.511 Acquired absence of right leg below knee; Z89.612 Acquired absence of left leg above knee
CPT/HCPCS: 10078; 10779; 10879

== ENCOUNTER 2017-08-31 03:02 | Emergency (ER) | payer OTHER ==
[~2017-08-31] VITALS: Ht 96.5 cm; Wt 65.8 kg
== END 2017-08-31 05:02 | disposition home or self-care (01) ==
LOC: ER 03:02
DX: F10.129 Alcohol abuse with intoxication, unspecified (principal); F91.9 Conduct disorder, unspecified; F17.210 Nicotine dependence, cigarettes, uncomplicated; I10 Essential (primary) hypertension; F32.9 Major depressive disorder, single episode, unspecified; Z88.6 Allergy status to analgesic agent

== ENCOUNTER → 2017-08-31 | Emergency (ER) | payer OTHER ==
[~2017-08-31] VITALS: Ht 96.5 cm; Wt 63.5 kg
[~2017-08-31] MED LIST changes: +AMLODIPINE BESYL5 MG PO; +HALOPERIDOL 5 MG5 MG PO; +OLANZAPINE ODT5 MG PO; +OXYCODONE HCL 55 MG PO; +PRENATAL COMPL1 EACH PO; +TRAMADOL 50 MG50 MG PO; +VISTARIL 25 MG25 M1 PO; +ZYPREXA 5 MG TAB5 M1 PO
== END ==
LOC: ER 00:56
DX: F10.129 Alcohol abuse with intoxication, unspecified (principal); I10 Essential (primary) hypertension; F32.9 Major depressive disorder, single episode, unspecified; F17.210 Nicotine dependence, cigarettes, uncomplicated; Z88.6 Allergy status to analgesic agent

== ENCOUNTER 2017-09-01 06:27 | Emergency (ER) | payer OTHER ==
[~2017-09-01] VITALS: Ht 121.9 cm; Wt 63.5 kg
== END 2017-09-01 06:54 | disposition home or self-care (01) ==
LOC: ER 06:27
DX: F10.129 Alcohol abuse with intoxication, unspecified (principal); F32.9 Major depressive disorder, single episode, unspecified; I10 Essential (primary) hypertension; F17.210 Nicotine dependence, cigarettes, uncomplicated; Z88.6 Allergy status to analgesic agent

== ENCOUNTER 2017-09-05 15:09 | Emergency (ER) | payer OTHER ==
[~2017-09-05] VITALS: Ht 106.7 cm; Wt 49.9 kg
== END 2017-09-05 16:10 | disposition home or self-care (01) ==
LOC: ER 15:09
DX: F10.129 Alcohol abuse with intoxication, unspecified (principal); I10 Essential (primary) hypertension; F32.9 Major depressive disorder, single episode, unspecified; Z87.01 Personal history of pneumonia (recurrent); F17.210 Nicotine dependence, cigarettes, uncomplicated; Z88.1 Allergy status to other antibiotic agents; Z88.6 Allergy status to analgesic agent

== ENCOUNTER → 2017-09-05 | Emergency (ER) | payer OTHER ==
[~2017-09-05] VITALS: Ht 91.4 cm; Wt 63.5 kg
== END ==
LOC: ER 12:48
DX: F10.10 Alcohol abuse, uncomplicated (principal); Z59.0 Homelessness; F17.210 Nicotine dependence, cigarettes, uncomplicated; Z88.1 Allergy status to other antibiotic agents; Z88.6 Allergy status to analgesic agent

== ENCOUNTER 2017-09-18 01:38 | Emergency (ER) | payer OTHER ==
[~2017-09-18] VITALS: Ht 106.7 cm; Wt 49.9 kg
== END 2017-09-18 02:01 | disposition home or self-care (01) ==
LOC: ER 01:38
DX: R56.9 Unspecified convulsions (principal); I10 Essential (primary) hypertension; F32.9 Major depressive disorder, single episode, unspecified; F17.210 Nicotine dependence, cigarettes, uncomplicated; Z88.1 Allergy status to other antibiotic agents; Z88.6 Allergy status to analgesic agent

== ENCOUNTER 2017-09-18 10:43 | Emergency (ER) | payer OTHER ==
[~2017-09-18] VITALS: Ht 91.4 cm; Wt 65.3 kg
== END 2017-09-18 11:09 | disposition home or self-care (01) ==
LOC: ER 10:43
DX: F10.129 Alcohol abuse with intoxication, unspecified (principal); I10 Essential (primary) hypertension; F32.9 Major depressive disorder, single episode, unspecified; F17.210 Nicotine dependence, cigarettes, uncomplicated; Z88.1 Allergy status to other antibiotic agents; Z88.6 Allergy status to analgesic agent

== ENCOUNTER 2017-09-19 05:16 | Inpatient (IN) | payer OTHER ==
[~2017-09-19] VITALS: Ht 109.2 cm; Wt 61.7 kg
[2017-09-19 05:58] VITALS: BP 147/75
[2017-09-19 05:58] LABS: HEMATOCRIT 38.1 % (42.0-52.0); HEMOGLOBIN 12.6 gm/dL (14.0-18.0); MCH 26.6 pg (26.0-34.0); MCHC 32.9 g/dL (28.0-37.0); MCV 80.8 fL (80.0-100.0); PLATELET COUNT 181 thou/uL (150-400); RBC 4.72 mil/uL (4.50-6.00); RDW 25.8 % (10.5-14.5); WBC 3.6 thou/uL (4.0-11.0)
[2017-09-19 06:04] LABS: CALCIUM 9.1 mg/dL (8.5-10.1); CREATININE 0.6 mg/dL (0.7-1.3); POTASSIUM 3.4 mmol/L (3.5-5.1)
[2017-09-19 06:10] LABS: TOTAL BILIRUBIN 0.3 mg/dL (<0.1-1.0); TOTAL PROTEIN 9.1 g/dL (6.4-8.2)
[2017-09-19 06:21] LABS: ABSOLUTE NEUTROPHILS 1.9 thou/uL (1.4-8.2); ANISOCYTOSIS 3+
[2017-09-19 06:54] VITALS: BP 147/75
[2017-09-19 10:23] VITALS: BP 125/79
[2017-09-19 10:30] VITALS: BP 131/91
[2017-09-19 16:00] LABS: AMP/METHAMP Negative (Negative); BARBITURATES Negative (Negative); BENZODIAZEPINES Negative (Negative); COCAINE Negative (Negative); METHADONE Negative (Negative); OPIATES Negative (Negative); PCP Negative (Negative)
[2017-09-19 16:22] VITALS: BP 163/105
[2017-09-19 19:15] VITALS: BP 168/118
[2017-09-20 03:00] VITALS: BP 170/111
[2017-09-20 11:24] VITALS: BP 145/87
[2017-09-20 15:41] VITALS: BP 155/109
[2017-09-20 19:45] VITALS: BP 179/106
[2017-09-20 23:46] VITALS: BP 133/91
[2017-09-21 04:00] VITALS: BP 143/87
[2017-09-21 06:33] LABS: CALCIUM 8.9 mg/dL (8.5-10.1); CREATININE 0.5 mg/dL (0.7-1.3); MAGNESIUM 1.1 mg/dL (1.8-2.4); PHOSPHORUS 4.3 mg/dL (2.5-4.9); POTASSIUM 3.1 mmol/L (3.5-5.1); TOTAL BILIRUBIN 0.3 mg/dL (<0.1-1.0); TOTAL PROTEIN 6.8 g/dL (6.4-8.2)
[2017-09-21 08:12] VITALS: BP 155/75
[2017-09-21] MEDS ORDERED: AMLODIPINE BESYL5 MG PO (09:12)
[2017-09-21] MEDS ORDERED: TRAMADOL 50 MG50 MG PO (09:12)
[2017-09-21] MEDS ORDERED: DILANTIN100 MG PO (09:12)
[2017-09-21] MEDS ORDERED: PEPCID20 MG PO (09:13)
[2017-09-21] MEDS ORDERED: PRENATAL COMPL1 EACH PO (09:13)
[2017-09-21] MEDS ORDERED: ZYPREXA 5 MG TAB5 M1 PO (09:13)
[2017-09-21] MEDS ORDERED: VITAMIN B-1100 M2 PO (09:13)
[2017-09-21] MEDS ORDERED: HYDROCORTISONE30 G9 TOP (09:13)
[2017-09-21 09:27] VITALS: BP 155/75
[2017-09-21 12:36] VITALS: BP 155/75
== END 2017-09-21 13:31 | disposition home or self-care (01) | DRG 101 ==
LOC: ER 05:16 → EROBS 06:24 → 3W 10:15
PROVIDERS: Emergency Medicine; Hospitalist
PROC: B54MZZA Ultrasonography of Right Upper Extremity Veins, Guidance (ICD-10-PCS; principal; 2017-09-19)
PROC: 05HY33Z Insertion of Infusion Device into Upper Vein, Percutaneous Approach (ICD-10-PCS; principal; 2017-09-19)
DX: R56.9 Unspecified convulsions (principal); F10.239 Alcohol dependence with withdrawal, unspecified; F17.210 Nicotine dependence, cigarettes, uncomplicated; F32.9 Major depressive disorder, single episode, unspecified; I10 Essential (primary) hypertension; Z88.6 Allergy status to analgesic agent; Z89.511 Acquired absence of right leg below knee; Z88.8 Allergy status to other drugs, medicaments and biological substances; Z87.01 Personal history of pneumonia (recurrent); Z87.440 Personal history of urinary (tract) infections; Z59.0 Homelessness; Z79.899 Other long term (current) drug therapy
CPT/HCPCS: 10879

== ENCOUNTER 2017-09-25 06:51 | Emergency (ER) | payer OTHER ==
[~2017-09-25] VITALS: Ht 121.9 cm; Wt 63.5 kg
== END 2017-09-25 13:23 | disposition home or self-care (01) ==
LOC: ER 06:51
DX: F10.129 Alcohol abuse with intoxication, unspecified (principal); I10 Essential (primary) hypertension; F32.9 Major depressive disorder, single episode, unspecified; F17.210 Nicotine dependence, cigarettes, uncomplicated; Z88.5 Allergy status to narcotic agent; Z88.6 Allergy status to analgesic agent

== ENCOUNTER → 2017-09-25 | Emergency (ER) | payer OTHER ==
[~2017-09-25] VITALS: Ht 121.9 cm; Wt 63.5 kg
[~2017-09-25] MED LIST changes: +HYDROCORTISONE30 G9 TOP
== END ==
LOC: ER 21:28
DX: R56.9 Unspecified convulsions (principal); F32.9 Major depressive disorder, single episode, unspecified; I10 Essential (primary) hypertension; E03.9 Hypothyroidism, unspecified; G47.30 Sleep apnea, unspecified; F17.210 Nicotine dependence, cigarettes, uncomplicated; Z88.5 Allergy status to narcotic agent; Z88.6 Allergy status to analgesic agent; Z87.440 Personal history of urinary (tract) infections

== ENCOUNTER 2017-09-30 02:35 | Emergency (ER) | payer OTHER ==
[~2017-09-30] VITALS: Ht 94 cm; Wt 54.4 kg
== END 2017-09-30 08:50 | disposition home or self-care (01) ==
LOC: ER 02:35
DX: F10.129 Alcohol abuse with intoxication, unspecified (principal); G40.909 Epilepsy, unspecified, not intractable, without status epilepticus; I10 Essential (primary) hypertension; F17.210 Nicotine dependence, cigarettes, uncomplicated; Z88.5 Allergy status to narcotic agent; Z88.6 Allergy status to analgesic agent

== ENCOUNTER 2017-10-09 03:22 | Emergency (ER) | payer OTHER ==
[~2017-10-09] VITALS: Ht 109.2 cm; Wt 86.2 kg
== END 2017-10-09 03:55 | disposition home or self-care (01) ==
LOC: ER 03:22
DX: M79.604 Pain in right leg (principal); M79.605 Pain in left leg; F10.10 Alcohol abuse, uncomplicated; I10 Essential (primary) hypertension; F32.9 Major depressive disorder, single episode, unspecified; F17.210 Nicotine dependence, cigarettes, uncomplicated; Z88.5 Allergy status to narcotic agent; Z88.6 Allergy status to analgesic agent; W05.0XXA Fall from non-moving wheelchair, initial encounter; Y92.89 Other specified places as the place of occurrence of the external cause; Y93.89 Activity, other specified; Y99.8 Other external cause status

== ENCOUNTER 2017-10-15 12:13 | Emergency (ER) | payer OTHER ==
[~2017-10-15] VITALS: Ht 99.1 cm; Wt 59.0 kg
== END 2017-10-15 16:31 | disposition home or self-care (01) ==
LOC: ER 12:13
DX: S00.81XA Abrasion of other part of head, initial encounter (principal); F10.129 Alcohol abuse with intoxication, unspecified; Z59.0 Homelessness; F32.9 Major depressive disorder, single episode, unspecified; I10 Essential (primary) hypertension; F17.210 Nicotine dependence, cigarettes, uncomplicated; Z88.6 Allergy status to analgesic agent; Z88.5 Allergy status to narcotic agent; W05.0XXA Fall from non-moving wheelchair, initial encounter; Y92.89 Other specified places as the place of occurrence of the external cause; Y93.89 Activity, other specified; Y99.8 Other external cause status

== ENCOUNTER 2017-10-27 15:59 | Inpatient (IN) | payer OTHER ==
[~2017-10-27] VITALS: Ht 160 cm; Wt 83.9 kg
[2017-10-27 16:05] VITALS: BP 142/87
[2017-10-27 16:28] LABS: HEMOGLOBIN 11.7 gm/dL (14.0-18.0); MCH 26.5 pg (26.0-34.0); MCHC 33.5 g/dL (28.0-37.0); MCV 79.1 fL (80.0-100.0); PLATELET COUNT 104 thou/uL (150-400); RBC 4.42 mil/uL (4.50-6.00); RDW 19.5 % (10.5-14.5); WBC 4.5 thou/uL (4.0-11.0)
[2017-10-27 16:36] LABS: CALCIUM 8.7 mg/dL (8.5-10.1); CREATININE 0.6 mg/dL (0.7-1.3); POTASSIUM 3.5 mmol/L (3.5-5.1)
[2017-10-27 16:41] LABS: ALBUMIN 3.9 g/dL (3.4-5.0); TOTAL BILIRUBIN 0.2 mg/dL (<0.1-1.0)
[2017-10-27 16:57] LABS: BE(vivo) 5.4 mmol/L (-2 to +3); HCO3 33.7 mmol/L (22.0-26.0); PO2 110.4 mmHg (80.0-100.0); sO2 97.5 % (92.0-98.0)
[2017-10-27 16:58] LABS: PCO2 68.6 mmHg (35.0-45.0); pH 7.309 (7.360-7.450)
[2017-10-27 17:04] LABS: ABSOLUTE NEUTROPHILS 1.9 thou/uL (1.4-8.2)
[2017-10-27 17:05] LABS: ANISOCYTOSIS 2+
[2017-10-27 17:06] LABS: TARGET CELLS OCCASIONAL
[2017-10-27 18:58] LABS: BE(vivo) 2.2 mmol/L (-2 to +3); HCO3 29.7 mmol/L (22.0-26.0); PCO2 60.3 mmHg (35.0-45.0); PO2 66.4 mmHg (80.0-100.0); sO2 90.9 % (92.0-98.0)
[2017-10-27 21:28] VITALS: BP 125/86
[2017-10-27 21:49] VITALS: BP 142/66
[2017-10-27 22:00] VITALS: BP 139/96
[2017-10-27 23:20] VITALS: BP 135/90
[2017-10-27] MEDS ORDERED: GABAPENTIN 100100 MG PO (23:59)
[2017-10-28] MEDS ORDERED: TRAZODONE HCL100 MG PO (00:01)
[2017-10-28] MEDS ORDERED: KEPPRA 500 MG500 M1 PO (00:02)
[2017-10-28] MEDS ORDERED: AUGMENTIN 875-1 EACH (00:02)
[2017-10-28 04:20] VITALS: BP 129/88
== END 2017-10-28 07:30 | disposition left against medical advice (07) | DRG 189 ==
LOC: ER 15:59 → EROBS 19:22 → 3W 21:50
PROVIDERS: Physician Assistant
DX: J96.01 Acute respiratory failure with hypoxia (principal); J96.02 Acute respiratory failure with hypercapnia; F32.9 Major depressive disorder, single episode, unspecified; I10 Essential (primary) hypertension; F17.210 Nicotine dependence, cigarettes, uncomplicated; F10.10 Alcohol abuse, uncomplicated; Z89.612 Acquired absence of left leg above knee; Z88.5 Allergy status to narcotic agent; Z88.8 Allergy status to other drugs, medicaments and biological substances
CPT/HCPCS: 10879

== ENCOUNTER 2017-10-28 22:49 | Emergency (ER) | payer OTHER ==
[~2017-10-28] VITALS: Ht 121.9 cm; Wt 68.0 kg
[~2017-10-28 22:49] MED LIST changes: +AUGMENTIN 875-1 EACH; +GABAPENTIN 100100 MG PO; +KEPPRA 500 MG500 M1 PO; +TRAZODONE HCL100 MG PO
== END 2017-10-29 04:20 | disposition home or self-care (01) ==
LOC: ER 22:49
DX: S09.8XXA Other specified injuries of head, initial encounter (principal); F10.129 Alcohol abuse with intoxication, unspecified; F32.9 Major depressive disorder, single episode, unspecified; I10 Essential (primary) hypertension; F17.210 Nicotine dependence, cigarettes, uncomplicated; Z88.5 Allergy status to narcotic agent; Z88.6 Allergy status to analgesic agent; W05.0XXA Fall from non-moving wheelchair, initial encounter; Y93.89 Activity, other specified; Y92.89 Other specified places as the place of occurrence of the external cause; Y99.8 Other external cause status

== ENCOUNTER 2017-11-05 16:19 | Emergency (ER) | payer OTHER ==
[~2017-11-05] VITALS: Ht 91.4 cm; Wt 113.4 kg
== END 2017-11-05 22:21 | disposition home or self-care (01) ==
LOC: ER 16:19
DX: F10.129 Alcohol abuse with intoxication, unspecified (principal); I10 Essential (primary) hypertension; F32.9 Major depressive disorder, single episode, unspecified; G47.30 Sleep apnea, unspecified; Z87.01 Personal history of pneumonia (recurrent); F17.210 Nicotine dependence, cigarettes, uncomplicated; Z88.1 Allergy status to other antibiotic agents; Z88.5 Allergy status to narcotic agent; Z88.6 Allergy status to analgesic agent

== ENCOUNTER 2017-11-08 23:41 | Emergency (ER) | payer OTHER ==
[~2017-11-08] VITALS: Ht 121.9 cm; Wt 68.0 kg
== END 2017-11-09 07:44 | disposition home or self-care (01) ==
LOC: ER 23:41
DX: F10.20 Alcohol dependence, uncomplicated (principal); R41.82 Altered mental status, unspecified; I10 Essential (primary) hypertension; F32.9 Major depressive disorder, single episode, unspecified; G47.30 Sleep apnea, unspecified; Z87.01 Personal history of pneumonia (recurrent); F17.210 Nicotine dependence, cigarettes, uncomplicated; Z88.1 Allergy status to other antibiotic agents; Z88.5 Allergy status to narcotic agent; Z88.6 Allergy status to analgesic agent

== ENCOUNTER 2017-11-13 11:10 | Emergency (ER) | payer OTHER ==
[~2017-11-13] VITALS: Ht 91.4 cm; Wt 49.9 kg
== END 2017-11-13 14:11 | disposition home or self-care (01) ==
LOC: ER 11:10
DX: F10.10 Alcohol abuse, uncomplicated (principal); Z59.0 Homelessness; F17.210 Nicotine dependence, cigarettes, uncomplicated; F32.9 Major depressive disorder, single episode, unspecified; I10 Essential (primary) hypertension; G47.30 Sleep apnea, unspecified; Z88.6 Allergy status to analgesic agent; Z88.5 Allergy status to narcotic agent

== ENCOUNTER 2017-11-13 22:46 | Emergency (ER) | payer OTHER ==
[~2017-11-13] VITALS: Ht 147.3 cm; Wt 68.0 kg
== END 2017-11-14 04:40 | disposition home or self-care (01) ==
LOC: ER 22:46
DX: F10.129 Alcohol abuse with intoxication, unspecified (principal); J98.01 Acute bronchospasm; F32.9 Major depressive disorder, single episode, unspecified; I10 Essential (primary) hypertension; G47.30 Sleep apnea, unspecified; F17.210 Nicotine dependence, cigarettes, uncomplicated; Z88.6 Allergy status to analgesic agent; Z88.5 Allergy status to narcotic agent

== ENCOUNTER 2017-11-20 04:20 | Emergency (ER) | payer OTHER ==
[~2017-11-20] VITALS: Ht 127 cm; Wt 68.0 kg
== END 2017-11-20 06:03 | disposition home or self-care (01) ==
LOC: ER 04:20
DX: F10.129 Alcohol abuse with intoxication, unspecified (principal); F17.210 Nicotine dependence, cigarettes, uncomplicated; I10 Essential (primary) hypertension; F32.9 Major depressive disorder, single episode, unspecified; G47.30 Sleep apnea, unspecified; Z88.6 Allergy status to analgesic agent; Z88.5 Allergy status to narcotic agent

== ENCOUNTER 2017-12-06 13:25 | Emergency (ER) | payer OTHER ==
[~2017-12-06] VITALS: Ht 177.8 cm; Wt 59.0 kg
== END 2017-12-06 19:10 | disposition home or self-care (01) ==
LOC: ER 13:25
DX: F10.129 Alcohol abuse with intoxication, unspecified (principal); F17.210 Nicotine dependence, cigarettes, uncomplicated; F32.9 Major depressive disorder, single episode, unspecified; I10 Essential (primary) hypertension; G47.30 Sleep apnea, unspecified; Z88.6 Allergy status to analgesic agent; Z88.5 Allergy status to narcotic agent

== ENCOUNTER 2018-01-27 18:59 | Emergency (ER) | payer OTHER ==
[~2018-01-27] VITALS: Ht 121.9 cm; Wt 63.5 kg
== END 2018-01-27 21:34 | disposition home or self-care (01) ==
LOC: ER 18:59
DX: F10.129 Alcohol abuse with intoxication, unspecified (principal); I10 Essential (primary) hypertension; F32.9 Major depressive disorder, single episode, unspecified; F17.210 Nicotine dependence, cigarettes, uncomplicated; G47.30 Sleep apnea, unspecified; Z87.01 Personal history of pneumonia (recurrent); Z87.19 Personal history of other diseases of the digestive system; Z87.440 Personal history of urinary (tract) infections; Z88.5 Allergy status to narcotic agent; Z88.6 Allergy status to analgesic agent